=== PATIENT | female | born 1935 | race Caucasian/White ===

== ENCOUNTER 2016-08-23 02:51 | Day surgery (SDC) | payer MEDICARE, OTHER ==
[~2016-08-23] VITALS: Ht 165.1 cm; Wt 73.0 kg
[~2016-08-23 02:51] MED LIST: ACET-2321 PO; ALPR0.5T8 PO; ASPI-557 PO; CARV12.52 PO; DIPH25CA84 PO; ESTR0.5T4 PO; FERR324T PO; HYDR-4010 PO; HYDR-4246 PO; MAGN400O4 PO; MIRT15TA PO; MULT-1175 PO; NITR0.4T10 SL; OMEG1CAP29 PO; PRAM1TAB3 PO; PRED10TA PO; TELM40TA2 PO; VENL75CA60 PO
--- OUTSIDE RECORDS SUMMARY | 2016-08-23 02:56 | XMS REPORT | Continuity of Care Document ---
Author Author [facility] LIVE Organization [facility] Address Unknown Phone Unavailable Support Name Relationship Address Phone SUSIE RUDD MD Caregiver [address] [place] [phone] KAYY BANKS DPM Caregiver [address] [place] [address] [phone] PAIGE URBINA Next Of Kin [address] [place] [address] C Insurance Providers Payer Name Policy Number Subscriber Name Relationship Medicare [id number] Aisha Urbina 17 Self Medicare Supp Wps [id number] Paige Urbina 01 Spouse Advance Directives Directive Response Recorded Date/Time Ordered Resuscitation Status Full Code, unverified 03/20/14 12:36pm Problems Medical Problems Problem Onset Date Status Forehead laceration Unknown Active Contusion of head Unknown Active Forehead laceration Unknown Active Medications Medication Dose Route Sig Days/Qty Instructions Order Date Discontinued Date Status [Cenestin] DIRECTED 03/21/10 01/12/12 Discontinued [Effexor 75] 75 Mg PO TWICE A DAY 03/21/10 01/12/12 Discontinued Calcium Carbonate 2 Tab PO DAILY 03/21/10 11/24/11 Discontinued [Carvedilol] DIRECTED 03/21/10 11/24/11 Discontinued [Celebrex] 1 Tab PO DAILY 03/21/10 11/24/11 Discontinued Ferrous Sulfate 2 Tab PO DAILY 03/21/10 11/24/11 Discontinued [place]-3 Fatty Acids 2,400 Mg PO DAILY 03/21/10 Active Fluticasone Propionate [place] EA NOSTRIL NEEDED 03/21/10 Active Hydrocodone Bit/Acetaminophen 7.5 Mg PO NEEDED 03/21/10 11/25/11 Discontinued Pramipexole Di-Hcl 0.25 Mg PO BEDTIME 03/21/10 Active Multivitamins 1 Tab PO DAILY 03/21/10 09/21/12 Discontinued Pravastatin Sodium 20 Mg PO BEDTIME 03/21/10 11/24/11 Discontinued [Temazepam] DIRECTED 03/21/10 01/12/12 Discontinued [Viraim D 2000] 40,000 Mg PO DAILY 03/21/10 11/24/11 Discontinued Salmeterol Xinafoate/Fluticasone TWICE A DAY 11/24/11 08/13/13 Discontinued Mirtazapine 15 Mg PO DAILY 11/24/11 Active Cholecalciferol 1,000 Unit PO DAILY 2 Qty 11/24/11 01/12/12 Discontinued Fa/Mv,Ca,Fe,Min/Lycopene/Lut 1 Tab PO DAILY 01/12/12 Active Aspirin 81 Mg PO 3X WK 01/12/12 Active Estradiol 0.5 Mg PO DAILY 01/12/12 08/13/13 Discontinued Cyclobenzaprine Hcl 10 Mg PO NEEDED 01/12/12 08/13/13 Discontinued Telmisartan 20 Mg PO DAILY 01/12/12 Active Esomeprazole Mag Trihydrate 40 Mg PO NEEDED 01/12/12 Active Nitroglycerin 0.4 Mg SL NEEDED 01/12/12 Active Olopatadine Hcl 1 Drop OP NEEDED 01/12/12 Active Temazepam 30 Mg PO BEDTIME 01/12/12 Active Calcium Carbonate 300 Mg PO TWICE A DAY 01/12/12 08/13/13 Discontinued Acetaminophen 650 Mg THREE TIMES A DAY PRN 01/12/12 Active Ca Cmb No.1/Vit D3/B-6/Fa/B12 2 Each PO DAILY 01/12/12 Active Venlafaxine Hcl 75 Mg PO TWICE A DAY 08/13/13 Active Estrogens,Conj.,Synthetic A 0.45 Mg PO DAILY 08/13/13 Active Hydrocodone Bit/Acetaminophen 1 Each PO PRN PRN ORDERS 08/13/13 Active Social History Social History Problem Response Recorded Date/Time Smoking Status Never smoker 03/21/2014 6:38am Chewing Tobacco Status No 08/13/2013 8:36am Hx Substance Use No 02/23/2014 12:59pm Hx Alcohol Use Y OCCASIONAL 02/23/2014 12:59pm Has the pt used tobacco in the last 12 months No 03/21/2014 6:38am Query Response Start Date Stop Date Smoking Status Never smoker Hospital Discharge Instructions No hospital discharge instructions. Plan of Care No plan of care. Functional Status Query Response Date Recorded Physical Hygiene Self February 23, 2014 12:59pm Physical Hygiene Self February 23, 2014 12:59pm Allergies, Adverse Reactions, Alerts Allergen Type Severity Reaction Status Last Updated No Known Drug Allergies Allergy Unknown Active 02/23/14 Ibuprofen Adverse Reaction Mild UPSET STOMACH Active 03/20/14 Immunizations Name Given Type Hx Influenza Vaccination Y APR 2013 Historical Hx Pneumococcal Vaccination Y CURRENT Historical Hx Tetanus, Diptheria, Pertussis Y 2012 Historical Hx Influenza Vaccination Y APR 2013 Historical Hx Tetanus Diptheria Y KEEPS ME UPDATED Historical Hx Tetanus, Diptheria, Pertussis Y 2012 Historical Vital Signs Acute Vital Signs Vital Response Date/Time Temperature (Fahrenheit) 97.3 deg F (96.8 - 99.1) Temperature (Calculated Celsius) 36.87430 degrees C (36.0 - 37.3) Temperature Source Temporal Pulse Rate (adult) 58 bpm (60 - 100) Respiratory Rate 16 breaths/min (10 - 20) O2 Sat by Pulse Oximetry 97 % (90 - 100) Oxygen Delivery Method Room Air Blood Pressure 169/90 mm Hg Blood Pressure Source Automatic Cuff Height 5 ft 6.5 in Weight 173 lb Body Mass Index 27.0 kg/m^2 Results Test Source Date Result Interp. Ref. Range Comments Alanine Aminotransferase (ALT/SGPT) March 21, 2014 6:28am 33 U/L N 9- 52 COMMENT TO [facility] AT 0400 Albumin March 21, 2014 6:28am 4.2 G/DL N 3.5-5.0 COMMENT TO [facility] AT 0400 Albumin/Globulin Ratio March 21, 2014 6:28am 1.4 RATIO N 1.1-2.2 COMMENT TO [facility] AT 0400 Alkaline Phosphatase March 21, 2014 6:28am 100 U/L N 38-126 COMMENT TO [facility] AT 0400 Anion Gap March 21, 2014 6:28am 10 MEQ/L N 5-15 COMMENT TO [facility] AT 0400 Aspartate Amino Transf (AST/SGOT) March 21, 2014 6:28am 24 U/L N 14- 36 COMMENT TO [facility] AT 0400 BUN/Creatinine Ratio March 21, 2014 6:28am 16 RATIO N 6-26 COMMENT TO [facility] AT 0400 Basophils # (Auto) March 21, 2014 6:28am 0.1 T/MM3 N 0-0.2 COMMENT TO [facility] AT 0600 Basophils (%) (Auto) March 21, 2014 6:28am 0.7 % N 0-2 COMMENT TO [facility] AT 0600 Blood Urea Nitrogen March 21, 2014 6:28am 19.0 MG/DL H 7-17 COMMENT TO [facility] AT 0400 Calcium Level March 21, 2014 6:28am 9.7 MG/DL N 8.4-10.2 COMMENT TO [facility] AT 0400 Calculated Osmolality March 21, 2014 6:28am 267 MOSM/KG N 261-280 COMMENT TO [facility] AT 0400 Carbon Dioxide Level March 21, 2014 6:28am 27 MEQ/L N 22-30 COMMENT TO [facility] AT 0400 Chemistry Specimen Hemolysis March 21, 2014 6:28am < 15 0-25 0-25: No Hemolysis.26-70: Slight Hemolysis - can falsely elevate K and Urine Protein. 71-285: Moderate Hemolysis - can falsely elevate K, Troponin I, CA 19-9, PTH, CSF GLucose, and Urine Protein, and can falsely decrease Phenytoin. 286-999: Gross Hemolysis - can falsely elevate K, Troponin I, CA 19-9, PTH, CSF Glucose, and Urine Protine, and can falsely decrease Phenytoin. Recommend specimen recollection. Chloride Level March 21, 2014 6:28am 101 MEQ/L N 98-107 COMMENT TO [facility] AT 0400 Creatinine March 21, 2014 6:28am 1.2 MG/DL N 0.7-1.2 COMMENT TO [facility] AT 0400 Eosinophils # (Auto) March 21, 2014 6:28am 0.5 T/MM3 N 0-0.5 COMMENT TO [facility] AT 0600 Eosinophils (%) (Auto) March 21, 2014 6:28am 6.5 % H 0-4 COMMENT TO [facility] AT 0600 Globulin March 21, 2014 6:28am 2.9 G/DL N 2.4-3.6 COMMENT TO [facility] AT 0400 Glomerular Filtration Rate Calc March 21, 2014 6:28am 43 - COMMENT TO [facility] AT 0400 Glucose Level March 21, 2014 6:28am 89 MG/DL N 65-110 COMMENT TO [facility] AT 0400 Hematocrit March 21, 2014 6:28am 32.7 % L 36-46 COMMENT TO [facility] AT 0600 Hemoglobin March 21, 2014 6:28am 10.5 GM/DL L 12-16 COMMENT TO [facility] AT 0600 Icterus Index March 21, 2014 6:28am < 2 0-7 COMMENT TO [facility] AT 0400 Immature Granulocyte # (Auto) March 21, 2014 6:28am 0.01 T/MM3 N 0.00- 0.03 COMMENT TO [facility] AT 0600 Immature Granulocyte % (Auto) March 21, 2014 6:28am 0.1 % N 0.0-0.5 COMMENT TO [facility] AT 0600 Lab Scanned Report September 10, 2013 9:15pm LAB TEST FORM REQUEST [id number] - Lymphocytes # (Auto) March 21, 2014 6:28am 3.2 T/MM3 N 1-4.8 COMMENT TO [facility] AT 0600 Lymphocytes (%) (Auto) March 21, 2014 6:28am 43.6 % N 23-45 COMMENT TO [facility] AT 0600 MRSA Specimen Source September 18, 2012 2:42pm Nasal - Mean Corpuscular Hemoglobin March 21, 2014 6:28am 30.7 UUG N 26-34 COMMENT TO [facility] AT 0600 Mean Corpuscular Hemoglobin Concent March 21, 2014 6:28am 32.1 GM/DL N 31-37 COMMENT TO [facility] AT 0600 Mean Corpuscular Volume March 21, 2014 6:28am 95.6 UM3 N 80-100 COMMENT TO [facility] AT 0600 Mean Platelet Volume March 21, 2014 6:28am 9.4 UM3 N 9.4-12.4 COMMENT TO [facility] AT 0600 Methicillin-Resist S.aureus DNA PCR September 18, 2012 2:42pm Negative - Monocytes # (Auto) March 21, 2014 6:28am 0.8 T/MM3 N 0-0.8 COMMENT TO [facility] AT 0600 Monocytes (%) (Auto) March 21, 2014 6:28am 10.4 % H 0-9.0 COMMENT TO [facility] AT 0600 Neutrophils # (Auto) March 21, 2014 6:28am 2.8 T/MM3 N 1.8-7.7 COMMENT TO [facility] AT 0600 Neutrophils (%) (Auto) March 21, 2014 6:28am 38.7 % N 33-66 COMMENT TO [facility] AT 0600 Platelet Count March 21, 2014 6:28am 330 T/MM3 N 130-400 COMMENT TO [facility] AT 0600 Potassium Level March 21, 2014 6:28am 4.2 MEQ/L N 3.6-5 COMMENT TO [facility] AT 0400 Prothromb Time International Ratio October 22, 2012 9:10am 2.29 H 0.86-1.10 THERAPUTIC RANGE=2.00-3.00 FOR ANTI-THROMBOSIS THERAPUTIC RANGE=2.50-3.50 FOR IMPLANTED VALVE RDW Standard Deviation March 21, 2014 6:28am 48.2 FL N 36.9-50.2 COMMENT TO [facility] AT 0600 Red Blood Count March 21, 2014 6:28am 3.42 M/MM3 L 4.00-5.20 COMMENT TO [facility] AT 0600 Sodium Level March 21, 2014 6:28am 138 MEQ/L N 134-144 COMMENT TO [facility] AT 0400 Total Bilirubin March 21, 2014 6:28am 0.40 MG/DL N 0.20-1.30 COMMENT TO [facility] AT 0400 Total Protein March 21, 2014 6:28am 7.1 G/DL N 6.3-8.2 COMMENT TO [facility] AT 0400 Turbidity March 21, 2014 6:28am < 20 0-20 COMMENT TO [facility] AT 0400 Urinalysis Comment September 23, 2012 5:45am Microscopic not ind. - COMMENT DO C&S IF INDICATED;[facility]-PREOP IN FOR LABSHas specimen been collected/ obtained? Y Urine Bilirubin September 23, 2012 5:45am Negative - COMMENT DO C&S IF INDICATED;[facility]-PREOP IN FOR LABSHas specimen been collected/obtained? Y Urine Blood September 23, 2012 5:45am Negative - COMMENT DO C&S IF INDICATED;[facility]-PREOP IN FOR LABSHas specimen been collected/obtained? Y Urine Collection Type September 23, 2012 5:45am Voided - COMMENT DO C&S IF INDICATED;[facility]-PREOP IN FOR LABSHas specimen been collected/obtained? Y Urine Color September 23, 2012 5:45am Yellow - COMMENT DO C&S IF INDICATED;[facility]-PREOP IN FOR LABSHas specimen been collected/obtained? Y Urine Glucose (UA) September 23, 2012 5:45am Negative - COMMENT DO C&S IF INDICATED;[facility]-PREOP IN FOR LABSHas specimen been collected/obtained? Y Urine Ketones September 23, 2012 5:45am Negative - COMMENT DO C&S IF INDICATED;[facility]-PREOP IN FOR LABSHas specimen been collected/obtained? Y Urine Leukocyte Esterase September 23, 2012 5:45am Negative - COMMENT DO C&S IF INDICATED;[facility]-PREOP IN FOR LABSHas specimen been collected/obtained? Y Urine Nitrite September 23, 2012 5:45am Negative - COMMENT DO C&S IF INDICATED;[facility]-PREOP IN FOR LABSHas specimen been collected/obtained? Y Urine Protein September 23, 2012 5:45am Negative - COMMENT DO C&S IF INDICATED;[facility]-PREOP IN FOR LABSHas specimen been collected/obtained? Y Urine Specific [place] September 23, 2012 5:45am 1.015 - COMMENT DO C&S IF INDICATED;[facility]-PREOP IN FOR LABSHas specimen been collected/obtained? Y Urine Turbidity September 23, 2012 5:45am Clear - COMMENT DO C&S IF INDICATED;[facility]-PREOP IN FOR LABSHas specimen been collected/obtained? Y Urine Urobilinogen September 23, 2012 5:45am Normal EU/DL - COMMENT DO C& S IF INDICATED;[facility]-PREOP IN FOR LABSHas specimen been collected/obtained? Y Urine pH September 23, 2012 5:45am 6.0 - COMMENT DO C&S IF INDICATED;[facility] -PREOP IN FOR LABSHas specimen been collected/obtained? Y White Blood Count March 21, 2014 6:28am 7.3 T/MM3 N 4.5-11.0 COMMENT TO [facility] AT 0600 Gram Stain Hip, Intraoperative Site-Left September 24, 2012 7:41am Name: AISHA URBINA Unit #: [id number] : 1935 Sex: F Loc / Svc: [facility] DOS: 03/21/14 Signed Report #: [id number] DIAGNOSTIC IMAGING REPORT TYPE OF EXAM: FOOT RIGHT 2 VIEWS Dictated By: ADELA RUDD MD Indication: ITS.REASON: s/p hammertoe repair rt foot 2 and 3 toes Comparison: Right toe radiographs dated November 25, 2011 Findings: Postsurgical changes again noted from prior bunionectomy in the first digit. New arthrodesis hardware across the second and third toe proximal interphalangeal joints. Prior osteotomies. No acute fracture. Impression: New arthrodesis across the second and third toe PIP joints. . Procedures Procedure Status Date Provider(s) INTMD RPR FACE/MM 5.1-7.5 CM completed 02/23/14 SHIV KHAN MD Hammer toe repair completed 03/21/14 KAYY BANKS DPM Encounters Encounter Location Date/Time Departed Emergency Room [facility] 02/23/14 12:43pm
--- OUTSIDE RECORDS SUMMARY | 2016-08-23 02:56 | XMS REPORT | Continuity of Care Document ---
Author Author [facility] LIVE Organization [facility] Address Unknown Phone Unavailable Support Name Relationship Address Phone SHIV KHAN MD Caregiver [address] [place] [address] [place] [address] WIN KHAN MD Caregiver [address] [place] [address] [place] [address] SUSIE PALACIO MD Caregiver [address] [facility] [address] [place] [address] MIGUEL URBINA Next Of Kin [address] [place] [address] C Insurance Providers Payer Name Policy Number Subscriber Name Relationship Medicare [id number] Rika Urbina 17 Self Medicare Supp Wps [id number] Miguel rUbina 01 Spouse Problems Medical Problems Problem Onset Date Status [...] 2 Tab PO DAILY 03/21/10 11/24/11 Discontinued [place]-3 Fatty Acids 2,400 Mg PO DAILY 03/21/10 Active Fluticasone Propionate [place] EA NOSTRIL NEEDED 03/21/10 Active Hydrocodone Bit/Acetaminophen [...] Mg SL NEEDED 01/12/12 Active Olopatadine Hcl 5 Ml OP NEEDED 01/12/12 Active Temazepam 30 Mg [...] Response Recorded Date/Time Smoking Status Never smoker 02/23/2014 12:59pm Chewing Tobacco Status No 08/13/2013 8:36am Hx Substance Use No 02/23/2014 12:59pm Hx Alcohol Use Y OCCASIONAL 02/23/2014 12:59pm Has the pt used tobacco in the last 12 months No 09/24/2012 10:26am Query Response Start Date Stop Date Smoking Status Never smoker Hospital Discharge Instructions No hospital discharge instructions. Plan of Care No plan of care. Functional Status Query Response Date Recorded Physical Hygiene Self February 23, 2014 12:59pm Disabilities None February 23, 2014 12:59pm Devices Used Dentures Glasses February 23, 2014 12:59pm Dressing Self February 23, 2014 12:59pm Ambulation Self February 23, 2014 12:59pm Diet Self February 23, 2014 12:59pm Mental Status Alert Oriented February 23, 2014 12:59pm Disabilities None February 23, 2014 12:59pm Devices Used Dentures Glasses February 23, 2014 12:59pm Physical Hygiene Self February 23, 2014 12:59pm Dressing Self February 23, 2014 12:59pm Ambulation Self February 23, 2014 12:59pm Diet Self February 23, 2014 12:59pm Allergies, Adverse Reactions, Alerts Allergen Type Severity Reaction Status Last Updated No Known Drug Allergies Allergy Unknown Active 02/23/14 Immunizations Name Given Type Hx Influenza Vaccination Y APR 2013 Historical Hx Pneumococcal Vaccination Y CURRENT Historical Hx Tetanus, Diptheria, Pertussis Y 2012 Historical Hx Influenza Vaccination Y APR 2013 Historical Hx Tetanus Diptheria Y KEEPS ME UPDATED Historical Hx Tetanus, Diptheria, Pertussis Y 2012 Historical Vital Signs Acute Vital Signs Vital Response Date/Time Temperature (Fahrenheit) 96.5 deg F (96.8 - 99.1) Temperature (Calculated Celsius) 35.29765 degrees C (36.0 - 37.3) Pulse Rate (adult) 79 bpm (60 - 100) Respiratory Rate 16 breaths/min (10 - 20) O2 Sat by Pulse Oximetry 94 % (90 - 100) Blood Pressure 183/97 mm Hg Height 5 ft 7 in Weight 173 lb Body Mass Index 27.0 kg/m^2 Results Test Source Date Result Interp. Ref. Range Comments Alanine Aminotransferase (ALT/SGPT) September 23, 2012 11:15am 29 U/L N 9- 52 Albumin September 23, 2012 11:15am 4.8 G/DL N 3.5-5.0 Albumin/Globulin Ratio September 23, 2012 11:15am 1.5 RATIO N 1.1-2.2 Alkaline Phosphatase September 23, 2012 11:15am 92 U/L N 38-126 Anion Gap September 27, 2012 5:05am 9 MEQ/L N 5-15 Aspartate Amino Transf (AST/SGOT) September 23, 2012 11:15am 19 U/L N 14-36 BUN/Creatinine Ratio September 27, 2012 5:05am 16 RATIO N 6-26 Basophils # (Auto) September 23, 2012 11:15am 0.0 T/MM3 N 0-0.2 COMMENT [facility]-PT FOR PREOP LABS Basophils (%) (Auto) September 23, 2012 11:15am 0.5 % N 0-2 COMMENT [facility]- PT FOR PREOP LABS Blood Urea Nitrogen September 10, 2013 4:21pm 18.0 MG/DL H 7-17 CALL RESULTS TO XRAY Calcium Level September 27, 2012 5:05am 9.2 MG/DL N 8.4-10.2 Calculated Osmolality September 27, 2012 5:05am 259 MOSM/KG L 261-280 Carbon Dioxide Level September 27, 2012 5:05am 25 MEQ/L N 22-30 Chloride Level September 27, 2012 5:05am 99 MEQ/L N 98-107 Creatinine September 10, 2013 4:21pm 1.3 MG/DL H 0.7-1.2 CALL RESULTS TO XRAY Eosinophils # (Auto) September 23, 2012 11:15am 0.2 T/MM3 N 0-0.5 COMMENT [facility] FOR PREOP LABS Eosinophils (%) (Auto) September 23, 2012 11:15am 2.8 % N 0-4 COMMENT [facility]- PT FOR PREOP LABS Globulin September 23, 2012 11:15am 3.2 G/DL N 2.4-3.6 Glucose Level September 27, 2012 5:05am 113 MG/DL H 65-110 Hematocrit September 27, 2012 5:05am 27.1 % L 36-46 Hemoglobin September 27, 2012 5:05am 8.7 GM/DL L 12-16 Lymphocytes # (Auto) September 23, 2012 11:15am 2.3 T/MM3 N 1-4.8 COMMENT [facility] FOR PREOP LABS Lymphocytes (%) (Auto) September 23, 2012 11:15am 29.9 % N 23-45 COMMENT [facility] FOR PREOP LABS Mean Corpuscular Hemoglobin September 27, 2012 5:05am 30.4 UUG N 26-34 Mean Corpuscular Hemoglobin Concent September 27, 2012 5:05am 32.1 GM/DL N 31-37 Mean Corpuscular Volume September 27, 2012 5:05am 94.8 UM3 N 80-100 Mean Platelet Volume September 27, 2012 5:05am 9.3 UM3 L 9.4-12.4 Monocytes # (Auto) September 23, 2012 11:15am 0.6 T/MM3 N 0-0.8 COMMENT [facility] FOR PREOP LABS Monocytes (%) (Auto) September 23, 2012 11:15am 8.1 % N 0-9.0 COMMENT [facility]- PT FOR PREOP LABS Neutrophils # (Auto) September 23, 2012 11:15am 4.5 T/MM3 N 1.8-7.7 COMMENT [facility] FOR PREOP LABS Neutrophils (%) (Auto) September 23, 2012 11:15am 58.6 % N 33-66 COMMENT [facility] FOR PREOP LABS Platelet Count September 27, 2012 5:05am 282 T/MM3 N 130-400 Potassium Level September 27, 2012 5:05am 4.5 MEQ/L N 3.6-5 Prothromb Time International Ratio October 22, 2012 9:10am 2.29 H 0.86-1.10 THERAPUTIC RANGE=2.00-3.00 FOR ANTI-THROMBOSIS THERAPUTIC RANGE=2.50-3.50 FOR IMPLANTED VALVE RDW Standard Deviation September 27, 2012 5:05am 49.1 FL N 36.9-50.2 Red Blood Count September 27, 2012 5:05am 2.86 M/MM3 L 4.00-5.20 Sodium Level September 27, 2012 5:05am 133 MEQ/L L 134-144 Total Bilirubin September 23, 2012 11:15am 0.40 MG/DL N 0.20-1.30 Total Protein September 23, 2012 11:15am 8.0 G/DL N 6.3-8.2 Urine Bilirubin September 23, 2012 5:45am Negative [...] LABSHas specimen been collected/obtained? Y Urine Specific [place] September 23, 2012 5:45am 1.015 - COMMENT [...] specimen been collected/obtained? Y White Blood Count September 27, 2012 5:05am 9.2 T/MM3 N 4.5-11.0 Urinalysis Comment September 23, 2012 5:45am Microscopic not ind. - COMMENT DO C&S IF INDICATED;[facility]-PREOP IN FOR LABSHas specimen been collected/ obtained? Y Lab Scanned Report September 10, 2013 9:15pm LAB TEST FORM REQUEST [id number] - Methicillin-Resist S.aureus DNA PCR September 18, 2012 2:42pm Negative - Glomerular Filtration Rate Calc September 10, 2013 4:21pm 40 - CALL RESULTS TO XRAY Immature Granulocyte # (Auto) September 23, 2012 11:15am 0.01 T/MM3 N 0.00- 0.03 COMMENT [facility] FOR PREOP LABS Immature Granulocyte % (Auto) September 23, 2012 11:15am 0.1 % N 0.0-0.5 COMMENT [facility] FOR PREOP LABS MRSA Specimen Source September 18, 2012 2:42pm Nasal - Gram Stain Hip, Intraoperative Site-Left September 24, 2012 7:41am Name: RIKA URBINA Unit #: [id number] : 1935 Sex: F Loc / Svc: ED DOS: 02/23/14 Signed Report #: [id number] DIAGNOSTIC IMAGING REPORT TYPE OF EXAM: CT HEAD W/O CONTRAST Dictated By: TULIO HOLLY MD INDICATION: ITS.REASON: fall forehead laceration, hx of "bleed in brain" CT HEAD W/O CONTRAST: CT HEAD W/O CONTRAST Technique: Axial acquisitions were obtained through the brain without contrast. The ventricles and sulci are age-appropriate. The kramer-white matter interface is maintained. There is no midline shift or mass effect. The basilar cisterns remain patent. There is no evidence for acute intracranial hemorrhage. IMPRESSION: No acute intracranial abnormality. . Procedures No known history of procedures. Encounters Encounter Location Date/Time Departed Emergency Room [facility] 02/23/14 12:43pm Recent Diagnosis
--- OUTSIDE RECORDS SUMMARY | 2016-08-23 02:56 | XMS REPORT | Continuity of Care Document ---
Author Author [facility] Organization [facility] Address Unknown Phone Unavailable Support Name Relationship Address Phone SUSIE RUDD MD Caregiver [address] [place] [address] Unavailable JOSEPH CRUM MD Caregiver [address] [place] [address] Unavailable MARTHA MARIN MD Caregiver [address] [facility] [address] Unavailable MIGUEL URBINA Next Of Kin [address] [place] [address] C Insurance Providers Guarantor Aisha Urbina Address [address] [place] [address] C Email DENIED 16 Payer [employer] Medicare Supp Wps Policy Number [id number] Subscriber's Name Miguel Urbina Relationship 01 Spouse Effective Date 01 Payer Medicare Policy Number [id number] Subscriber's Name Aisha Urbina Relationship 18 Self Advance Directives Directive Response Recorded Date/Time Advanced Directives Type None 08/11/16 9:44am Chief Complaint and Reason for Visit Chief Complaint Lower Extremity Pain Reason for Visit Osteoarthritis of right hip Problems Active Problems Medical Problem Onset Date Status Anemia Unknown Acute CAD (coronary artery disease) ~2005 Chronic CKD (chronic kidney disease), stage III Unknown Chronic Carotid artery disease Unknown Chronic Carotid stenosis, left Unknown Resolved Depression Unknown Chronic Dislocation of internal left hip prosthesis Unknown Acute Failure of total hip arthroplasty Unknown Resolved GERD (gastroesophageal reflux disease) Unknown Chronic Hip dislocation, left Unknown Acute Hypertension Unknown Chronic Hypokalemia Unknown Acute Hypoxemia Unknown Acute Infection Unknown Resolved Laryngitis Unknown Acute Left hip pain Unknown Acute Lethargy Unknown Acute Overweight (BMI 25.0-29.9) Unknown Chronic Postoperative hypotension Unknown Acute Restless leg syndrome Unknown Chronic Right hip pain Unknown Acute SDH (subdural hematoma) ~2005 Resolved Surgical Problem Onset Date Status History of total hip arthroplasty Unknown Acute Past Problems Medical Problem Onset Date Contusion of head Unknown Forehead laceration Unknown Forehead laceration Unknown Osteoarthritis of right hip Unknown Medications Current Home Medications Medication Dose Units Route Directions Days Qty Instructions Start Date Acetaminophen (Tylenol) 325 Mg Tablet 650 Mg Oral Four Times Daily as needed for Pain 30 Days 12/25/15 Alprazolam 0.5 Mg Tablet 1.5 Mg Oral Bedtime 30 Days 90 Tablet Aspirin (Aspir 81) 81 Mg Tablet.dr 1 Tab Oral Daily 30 Days 30 Tablet 12/25/15 Carvedilol 12.5 Mg Tablet 12.5 Mg Oral Twice Daily With Meals 12/18 Diphenhydramine Hcl (Benadryl) 25 Mg Capsule 25 Mg Oral Every 6 Hours as needed for Itching 30 Capsule 12/18/15 Estradiol (Estrace) 0.5 Mg Tablet 1 Tab Oral Daily 30 Days 30 Tablet 12/25/15 Ferrous Gluconate 324 Mg Tablet 324 Mg Oral Twice Daily With Meals 60 Tablet 12/25/15 Hydrocodone/Acetaminophen (Lortab 7.5-325 Mg Tablet) 1 Each Tablet 1 Tab Oral Twice A Day for Pain 10 Tablet 08/11/16 Hydrocodone/Acetaminophen (Yale 5-325 Tablet) 5-325 Tablet 1 Tab Oral Every 6 Hours as needed for Pain 30 12/25/15 Magnesium Hydroxide (Milk Of Magnesia) 400 Mg/5 Ml Oral.susp 30 Ml Oral Daily as needed for Constipation 30 Days 12/18/15 Mirtazapine (Remeron) 15 Mg Tablet 7.5 Mg Oral Bedtime 11/24/11 Multivitamin (Multi-Vitamin Daily) 1 Each Tablet 1 Tab Oral Daily 09/08/15 Nitroglycerin (Nitroquick) 0.4 Mg Tab.subl 0.4 Mg Sublingual Every 5 Minutes X 3 as needed for Chest Pain 01/12/12 Abbot-3/Dha/Epa/Fish Oil (Fish Oil 1,400 Mg Softgel) 1 Each Capsule. 1,400 Mg Oral Daily 09/08/15 Pramipexole Di-Hcl (Mirapex) 1 Mg Tablet 1 Mg Oral 1500 09/08/15 Prednisone 10 Mg Tablet 0 Oral Taper Qd 18 Tablet 30 mg daily x3 days 20 mg daily x3 days 10 mg daily x2 days 08/11/16 Telmisartan (Micardis) 40 Mg Tablet 40 Mg Oral Daily 11/10/15 Venlafaxine Hcl (Effexor Xr) 75 Mg Cap.er.24h 75 Mg Oral Daily Past Home Medications Medication Directions Ordered Status Acetaminophen (Tylenol) 325 Mg Tablet, 650 Mg Oral Four Times Daily 12/18/15 Discontinued Acetaminophen 500 Mg Tablet, 1000 Mg Oral Bedtime as needed for Pain Discontinued Acetaminophen 500 Mg Tablet, 1000 Mg Oral Every 6 Hours as needed for Pain Discontinued Acetaminophen/Hydrocodone Bitart (Yale 7.5-325 Tablet) 1 Each Tablet, 0.5 Tab Oral Bedtime as needed for Pain 09/08/15 Discontinued Alprazolam 0.5 Mg Tablet, 1.5 Mg Oral Bedtime 12/19/15 Discontinued Alprazolam 0.5 Mg Tablet, 2 Mg Oral Bedtime 09/08/15 Discontinued Aspirin (Aspir 81) 81 Mg Tablet.dr, 81 Mg Oral Daily 11/10/15 Discontinued Aspirin 81 Mg Tablet, 81 Mg Oral Daily 01/12/12 Discontinued Calcium Carbonate (Tums X-Str) 300 Mg Tab.chew, 300 Mg Oral Twice A Day 01/11 Discontinued Calcium Carbonate (Calcium) 1 Tab Tablet, 2 Tab Oral Daily 03/21/10 Discontinued Carvedilol 6.25 Mg Tablet, 6.25 Mg Oral Twice A Day 09/08/15 Discontinued Carvedilol , As Directed 03/21/10 Discontinued Celebrex , 1 Tab Oral Daily 03/21/10 Discontinued Cenestin , As Directed 03/21/10 Discontinued Cholecalciferol (Vitamin D) 1,000 Unit Capsule, 1000 Unit Oral Daily Discontinued Cyclobenzaprine Hcl (Flexeril) 10 Mg Tablet, 10 Mg Oral As Needed 01/12/12 Discontinued Effexor 75 , 75 Mg Oral Twice A Day 03/21/10 Discontinued Enoxaparin Sodium (Lovenox) 40 Mg/0.4 Ml Inj, 40 Mg Sub-Q Every 24 Hours Discontinued Estradiol (Estrace) 0.5 Mg Tablet, 0.5 Mg Oral Daily 12/12/15 Discontinued Estradiol 0.5 Mg Tablet, 0.5 Mg Oral Daily 01/12/12 Discontinued Ferrous Sulfate 1 Tab Tablet, 2 Tab Oral Daily 03/21/10 Discontinued Hydrocodone Bit/Acetaminophen (Lortab 7.5-500 Tablet) 1 Tab Tablet, 7.5 Mg Oral As Needed 03/21/10 Discontinued Hydrocodone/Acetaminophen (Yale 5-325 Tablet) 5-325 Tablet, 1 Tab Oral Every 6 Hours as needed for Pain 12/12/15 Discontinued Ipratropium/Albuterol Sulfate (Iprat-Albut 0.5-3(2.5) Mg/3 Ml) 3 Ml Ampul.neb, 3 Ml Aerosol Tx. Four Times Daily 12/18/15 Discontinued Multivitamins (Multivitamin) 1 Tab Tablet, 1 Tab Oral Daily 03/21/10 Discontinued Pravastatin Sodium 20 Mg Tablet, 20 Mg Oral Bedtime 03/21/10 Discontinued Salmeterol Xinafoate/Fluticasone (Advair 250-50 Diskus) 1 Each Disk.w.dev, Twice A Day 11/24/11 Discontinued Temazepam , As Directed 03/21/10 Discontinued Viraim D 2000 , 66507 Mg Oral Daily 03/21/10 Discontinued Social History Social History Problem Response Recorded Date/Time Onset Date Status Chewing Tobacco Status No 08/13/2013 8:36am Not Applicable Not Applicable Hx Substance Use No 08/11/2016 9:57am Not Applicable Not Applicable Hx Alcohol Use Y OCCASIONAL 08/11/2016 9:57am Not Applicable Not Applicable Has the pt used tobacco in the last 12 months No 12/12/2015 1:28pm Not Applicable Not Applicable Tobacco Usage none 12/20/2015 1:45pm Not Applicable Not Applicable Query Response Start Date Stop Date Smoking Status Never smoker Hospital Discharge Instructions No hospital discharge instructions. Plan of Care Discharge Date 08/11/16 12:53pm Disposition 01 DISCHARGED HOME, SELF-CARE Condition at Discharge Improved Instructions/Education Provided Osteoarthritis (ED) Prescriptions See Medication Section Referrals SUSIE RUDD MD Address: [address] [place] [phone] Additional Instructions/Education prednisone 10mg, 3 tabs daily for 3 days, 2 tabs daily for 3 days, 1 tab daily for 3 days. Yale 7.5 bid x 5 days , See your Primary Care Provider early next week. Functional Status No functional status results. Allergies, Adverse Reactions, Alerts Allergen Type Severity Reaction Status Last Updated Ibuprofen Adverse Reaction Mild UPSET STOMACH Active 08/11/16 Immunizations Query Response on File Recorded Date/Time Hx Influenza Vaccination Y Mar 2015 12/19/15 12:06pm Hx Pneumococcal Vaccination Y 201312/19/15 12:06pm Hx Tetanus, Diptheria, Pertussis Y 201202/23/14 12:59pm Hx Influenza Vaccination Y Mar 2015 12/19/15 12:06pm Hx Tetanus Diptheria Y KEEPS ME UPDATED 09/08/15 11:43am Hx Tetanus, Diptheria, Pertussis Y 201202/23/14 12:59pm Hx Tetanus Toxoid Vaccination Yes 09/08/15 11:43am DTaP Vaccine History 200908/11/16 9:57am Influenza Vaccine Hx 201508/11/16 9:57am Tdap Vaccine Hx NO OPEN AREAS 08/11/16 9:57am Vital Signs Acute Vital Signs Vital Response Date/Time Temperature (Fahrenheit) 97.9 deg F (96.8 - 99.1) 08/11/2016 9:44am Temperature (Calculated Celsius) 36.99169 degrees C (36.0 - 37.3) 08/11/2016 9:44am Pulse Rate (adult) 60 bpm (60 - 100) 08/11/2016 12:48pm Respiratory Rate 12 breaths/min (10 - 20) 08/11/2016 12:48pm O2 Sat by Pulse Oximetry 96 % (90 - 100) 08/11/2016 12:48pm Blood Pressure 156/74 mm Hg 08/11/2016 12:48pm Height (Feet) 5 feet 08/11/2016 9:44am Height (Inches) 5.00 inches 08/11/2016 9:44am Weight (Kilograms) 76.900 kg 08/11/2016 9:44am Body Mass Index (BMI) 28.0 08/11/2016 9:44am Results Laboratory Results Test Name Result Units Flags Reference Collection Date/Time Result Date/ Time Comments White Blood Count 4.3 T/MM3 L 4.5-11.0 08/11/2016 10:38am 08/11/2016 11: 11am Red Blood Count 3.49 M/MM3 L 4.00-5.20 08/11/2016 10:38am 08/11/2016 11: 11am Hemoglobin 10.7 GM/DL L 12-16 08/11/2016 10:38am 08/11/2016 11:11am Hematocrit 33.9 % L 36-46 08/11/2016 10:38am 08/11/2016 11:11am Mean Corpuscular Volume 97.1 UM3 80-100 08/11/2016 10:08/11/2016 11:11am Mean Corpuscular Hemoglobin 30.7 UUG 26-34 08/11/2016 10:2016 11:11am Mean Corpuscular Hemoglobin Concent 31.6 GM/DL 31-37 08/11/2016 10:08/11/2016 11:11am RDW Standard Deviation 48.9 FL 36.9-50.2 08/11/2016 10:08/11/2016 11:11am Platelet Count 304 T/MM3 130-400 08/11/2016 10:08/11/2016 11:11am Mean Platelet Volume 9.4 UM3 9.4-12.4 08/11/2016 10:08/11/2016 11: 11am Neutrophils (%) (Auto) 50.4 % 33-66 08/11/2016 10:08/11/2016 11: 11am Lymphocytes (%) (Auto) 28.0 % 23-45 08/11/2016 10:08/11/2016 11: 11am Monocytes (%) (Auto) 12.7 % H 0-9.0 08/11/2016 10:08/11/2016 11: 11am Eosinophils (%) (Auto) 8.2 % H 0-4 08/11/2016 10:08/11/2016 11: 11am Basophils (%) (Auto) 0.7 % 0-2 08/11/2016 10:08/11/2016 11:11am Immature Granulocyte % (Auto) 0.0 % 0.0-0.5 08/11/2016 10:2016 11:11am Absolute Neutrophils (auto) 2.1 T/MM3 1.8-7.7 08/11/2016 10:2016 11:11am Absolute Lymphocytes (auto) 1.2 T/MM3 1-4.8 08/11/2016 10:2016 11:11am Absolute Monocytes (auto) 0.5 T/MM3 0-0.8 08/11/2016 10:2016 11:11am Absolute Eosinophils (auto) 0.4 T/MM3 0-0.5 08/11/2016 10:38am 2016 11:11am Absolute Basophils (auto) 0.0 T/MM3 0-0.2 08/11/2016 10:38am 2016 11:11am Absolute Immature Granulocyte (auto 0.00 T/MM3 0.00-0.03 08/11/2016 10: 38am 08/11/2016 11:11am Icterus Index < 2 0-7 08/11/2016 10:38am 08/11/2016 11:22am Chemistry Specimen Hemolysis < 15 0-25 08/11/2016 10:38am 08/11/2016 11:22am 0-25: Specimen Exhibited No Hemolysis. Turbidity < 20 0-20 08/11/2016 10:38am 08/11/2016 11:22am Sodium Level 138 MEQ/L 134-144 08/11/2016 10:38am 08/11/2016 11:22am Potassium Level 4.9 MEQ/L 3.6-5 08/11/2016 10:38am 08/11/2016 11:22am Chloride Level 100 MEQ/L 98-107 08/11/2016 10:38am 08/11/2016 11:22am Carbon Dioxide Level 27 MEQ/L 22-30 08/11/2016 10:38am 08/11/2016 11: 22am Anion Gap 11 MEQ/L 5-15 08/11/2016 10:38am 08/11/2016 11:22am Blood Urea Nitrogen 26.0 MG/DL H 7-17 08/11/2016 10:38am 08/11/2016 11: 22am Creatinine 1.3 MG/DL H 0.7-1.2 08/11/2016 10:3808/11/2016 11:22am BUN/Creatinine Ratio 20 RATIO 6-26 08/11/2016 10:38am 08/11/2016 11: 22am Glomerular Filtration Rate Calc 39 08/11/2016 10:3808/11/2016 11 :22am Glucose Level 98 MG/DL 65-110 08/11/2016 10:3808/11/2016 11:22am Calculated Osmolality 271 MOSM/KG 261-280 08/11/2016 10:38am 2016 11:22am Calcium Level 9.5 MG/DL 8.4-10.2 08/11/2016 10:38am 08/11/2016 11:22am Total Bilirubin 0.50 MG/DL 0.20-1.30 08/11/2016 10:38am 08/11/2016 11: 22am Alkaline Phosphatase 85 U/L 38-126 08/11/2016 10:38am 08/11/2016 11: 22am Total Protein 6.9 G/DL 6.3-8.2 08/11/2016 10:38am 08/11/2016 11:22am Albumin 4.1 G/DL 3.5-5.0 08/11/2016 10:38am 08/11/2016 11:22am Globulin 2.8 G/DL 2.4-3.6 08/11/2016 10:38am 08/11/2016 11:22am Albumin/Globulin Ratio 1.5 RATIO 1.1-2.2 08/11/2016 10:38am 08/11/2016 11:23am Aspartate Amino Transf (AST/SGOT) 20 U/L 14-36 08/11/2016 10:38am 08/11 11:23am Alanine Aminotransferase (ALT/SGPT) 26 U/L 9-52 08/11/2016 10:38am 02/2017 11:23am Name: AISHA URBINA Unit #: [id number] : 1935 Sex: F Admit Date: Loc / Svc: ED Discharge Date: DIAGNOSTIC IMAGING REPORT Report #: [id number] [facility] [place] Indication: ITS.REASON: pain PROCEDURE: PELVIS W/2 VIEW RT HIP: Encounter: Initial Comparison: December 15, 2015 Findings: Left hip replacement appears stable and intact. No acute fracture or dislocation seen. Moderate right hip joint space narrowing is unchanged. Degenerative change in the visualized lower lumbar spine. Bony demineralization. Impression: No acute fracture. . Procedures No known history of procedures. Encounters Encounter Location Arrival/Admit Date Discharge/Depart Date Attending Provider Departed Emergency Room [facility] 08/11/16 9:41am 08/11/16 12: 53pm JOSEPH CRUM MD Recent Diagnosis
--- NOTE | 2016-08-23 03:11 | ERPDOC ---
Departure Disposition Decision Date: Aug 23, 2016 Disposition Decision Time: 04:38 Disposition: 02 TO [facility] Impression Impression Impression: Primary Impression: Chest pain, rule out acute myocardial infarction Severity: Moderate Condition: Stable Seen By: Physician only Referrals: SUSIE PALACIO MD (Family) Problems/Meds/Labs Reviewed?: Yes Medications reviewed and manag: Yes Follow up care ordered?: Yes Mental Status: Alert, Oriented HPI - Chest Pain General Stated Complaint: CP Time Seen by Provider: 03:01 Source: patient, EMS, EMS notes reviewed Exam Limitations: no limitations HPI - Chest Pain Initial Comments Patient is an 81-year-old female presents emergency room for evaluation of chest pain. Patient prior CA with stenting in 2005, hasn't really seen a creative engagement director in over a year, due to her creative engagement director dying. Patient does have nitroglycerin at home and uses intermittently last time patient used nitroglycerin was one month ago 2 nitroglycerin completely alleviated the chest pain. Patient did not follow-up with creative engagement director. Tonight patient awoke from sleep with anterior substernal chest pain with radiation to jaw and neck. Patient felt weak and dizzy during the episode. Pain quickly ramped up to 10/10, patient did take 3 nitroglycerin at home which alleviated the pain to an 8. Patient called EMS on EMS arrival patient's pain had almost essentially resolved. EMS loaded patient onboard medic unit patient' s pain had resolved at that time was chest pain-free. EKG nondiagnostic patient was brought to the ER for evaluation currently chest pain-free. 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 Farris 2012 Past Medical History Metabolic: hypercholesterolemia, hypertension ENMT: allergies Cardiac: CAD, CA GI: GERD Neurological: seizures Musculoskeletal: neck pain, osteoarthritis Psychological: depression Surgical History General: colonoscopy, neck, tonsils Cardiac: cardiac cath, cardiac stent, carotid endarterectomy Reproductive/: hysterectomy, tubal ligation Joint: carpal tunnel, foot, hip, shoulder Family History Family PMH: FOUND: other Vaccines Hx Influenza Vaccination: Yes (Mar 2015) Hx Pneumococcal Vaccination: Yes (2013) Hx Tetanus Diptheria: Yes ( KEEPS ME UPDATED) Hx Tetanus, Diptheria, Pertuss: Yes (2012) Social History Smoking Status: Never smoker Does patient use chewing tobac: No Substance Use Type: does not use Alcohol Intake: none Sexuality: male partner Review of Systems Constitutional Constitutional: dizziness, weakness, DENIES: appetite decrease, chills, fever Eyes Vision: DENIES: blurring, double vision, loss of visual lilly ENMT Sinuses: DENIES: congestion, rhinorrhea Mouth/Throat: DENIES: scratchy throat, sore throat Cardiovascular Cardiac: chest pain, DENIES: dyspnea on exertion Pulmonary Respiratory: dyspnea, DENIES: cough, sputum, tachypnea GI Upper Abdomen: DENIES: nausea, pain, vomiting Lower Abdomen: DENIES: constipation, diarrhea, pain General: DENIES: frequency, urgency Musculoskeletal General: DENIES: cramps, pain, weakness Integumentary Skin: DENIES: color change, itching, rash Endocrine Endocrine: DENIES: heat/cold intolerance Hematologic/Lymphatic Hematologic/Lymphatic: DENIES: anemia Physical Exam General General Nourishment: well nourished, well developed General Body Habitus: well groomed Vitals and Pain First Documented Vital Signs Date Time Temp Pulse Resp B/P Pulse Ox O2 Delivery O2 Flow Rate FiO2 08/23/16 02:51 98.5 62 21 164/79 98 Room Air Weight: Kilograms: Height (feet): 5 Height (inches): 5.00 Triage Pain Scale: RN VS reviewed by Provider: Yes Eyes (brief) Eyes Brief: found: EOMI ENMT (brief) ENMT Brief: FOUND: mucosa moist, normal dentition, NOT FOUND: nasal erythema, pharnyx erythema, tonsillar deviation Neck (brief) Neck: NOT FOUND: adenopathy, spasm, tenderness Respiratory (brief) Respiratory: FOUND: clear all lilly, equal bilaterally, NOT FOUND: rales, wheezes Cardiovascular (brief) Cardiac: FOUND: regular rate, regular rhythm Capillary Refill: <2 sec Abdomen (brief) Abdominal Brief: FOUND: bowel normo active x4, soft, NOT FOUND: distended, tender (patient is nontender to palpation of the epigastrium) Lymphatic (brief) Lymphatic Brief: NOT FOUND: adenopathy Musculoskeletal (brief) Musculoskeletal Brief: NOT FOUND: spasm, tenderness Integumentary (brief) Integumentary Brief: FOUND: dry, pink, warm, NOT FOUND: rash Neurologic (brief) Neurological Brief: FOUND: CN w/o gross def to obs, motor-no gross deficits, sensory-no gross deficits Psychiatric (brief) Psychiatric Brief: FOUND: alert, oriented Differential Diagnoses Considering: Acute CA, Anxiety/Panic, Angina, Aortic Dissection, Biliary Colic , Bradycardia, CHF, Costochondritis, Esophageal Spasm, GERD, Hypertensive Emergency, Pleurisy, Pneumothorax, Pneumonia, Pulmonary Edema, Muscle Spasm Progress Results/Orders Orders Procedure Category Date Status Time Cbc W/Auto LAB 08/23/16 Complete Diff-Reflex Manual 03:01 Cmp - Comprehensive LAB 08/23/16 Complete Metabolic 03:01 Probnp LAB 08/23/16 Complete 03:01 Troponin I W LAB 08/23/16 Complete Hemolysis Index 03:01 EKG EKG 08/23/16 Taken 03:01 Chest 1 View RAD 08/23/16 Taken 03:01 Iv Lock (Ed Only) EDM 08/23/16 Transmitted 03:01 Aspirin (Asa) PHA 08/23/16 Complete 03:15 Nitroglycerin PHA 08/23/16 In Process (Nitrostat) 03:15 Place In Facility: ED ADM 08/23/16 Transmitted 04:36 Measure Vital Signs ALICE 08/23/16 In Process 04:36 Up In Room With Assist ALICE 08/23/16 In Process 04:36 Iv Lock (Nursing) ALICE 08/23/16 In Process 04:36 Prn Orders (Adult) PHA 08/23/16 In Process (May Use Prn Orders) 04:45 Troponin I W LAB 08/23/16 Logged Hemolysis Index 09:30 Troponin I W LAB 08/23/16 Logged Hemolysis Index 15:30 Troponin I W LAB 3/21/17 Logged Hemolysis Index 21:30 Nitroglycerin PHA 08/23/16 In Process (Nitrostat) 04:45 Telemetry ALICE 08/23/16 In Process 04:36 Lab Results Laboratory Tests Test 08/23/16 03:21 White Blood Count 7.3T/MM3 Red Blood Count 3.41M/MM3 Hemoglobin 10.7GM/DL Hematocrit 32.8% Mean Corpuscular Volume 96.2UM3 Mean Corpuscular Hemoglobin 31.4UUG Mean Corpuscular Hemoglobin Concent 32.6GM/DL RDW Standard Deviation 49.8FL Platelet Count 292T/MM3 Mean Platelet Volume 9.1UM3 Immature Granulocyte % (Auto) 0.4% Neutrophils (%) (Auto) 67.0% Lymphocytes (%) (Auto) 18.3% Monocytes (%) (Auto) 11.2% Eosinophils (%) (Auto) 3.0% Basophils (%) (Auto) 0.1% Absolute Immature Granulocyte (auto 0.03T/MM3 Absolute Neutrophils (auto) 4.9T/MM3 Absolute Lymphocytes (auto) 1.3T/MM3 Absolute Monocytes (auto) 0.8T/MM3 Absolute Eosinophils (auto) 0.2T/MM3 Absolute Basophils (auto) 0.0T/MM3 Turbidity < 20 Sodium Level 140MEQ/L Potassium Level 4.8MEQ/L Chloride Level 105MEQ/L Carbon Dioxide Level 24MEQ/L Anion Gap 11MEQ/L Blood Urea Nitrogen 33.0MG/DL Creatinine 1.3MG/DL Glomerular Filtration Rate Calc 39 BUN/Creatinine Ratio 25RATIO Glucose Level 107MG/DL Calculated Osmolality 276MOSM/KG Calcium Level 9.7MG/DL Total Bilirubin 0.40MG/DL Icterus Index < 2 Aspartate Amino Transf (AST/SGOT) 19U/L Alanine Aminotransferase (ALT/SGPT) 31U/L Alkaline Phosphatase 97U/L Troponin I < 0.012ng/ml TC-Cpn-A-Type Natriuretic Peptide 298PG/ML Total Protein 6.8G/DL Albumin 4.0G/DL Globulin 2.8G/DL Albumin/Globulin Ratio 1.4RATIO Chemistry Specimen Hemolysis < 15 Medications Current ED Medications Aspirin (ASA) 324 mg O ONCE PO Last administered on 08/23/16t 03:28; Start at 03:15; Stop 08/23/16 at 03:16; Status DC Nitroglycerin (Nitrostat) 0.4 mg Q5MIN PRN SL CHEST PAIN; Start 08/23/16 at 03: 15 Progress Progress Patient's stated chest pain-free while in the emergency department, 1st set of laboratories are noncontributory as well as EKG and chest x-ray. Discuss case with Mehreen control cabinet assembler for Dr. Garcia's group will admit observation status rule out chest pain EKG EKG : Rate: <60 Rhythm: sinus [place]: normal QRS: normal Intervals: normal ST/T: non-specific changes Interpreted by: signing physician Xray Xray : Xray: CXR Portable Interpretation: Normal, Interpreted by Me (stable chest no acute current pulmonary findings) LUZ JONES MD Aug 23, 2016 03:11
[2016-08-23] MEDS ORDERED: ASPIRIN 81 MG CHEWABLE TABLET PO ONE (03:15)
[2016-08-23] MEDS ORDERED: NITROGLYCERIN 0.4 MG SUBLINGUAL TABLET SL PRN ×3 (03:15→13:45)
--- OUTSIDE RECORDS SUMMARY | 2016-08-23 03:22 | XMS REPORT | Continuity of Care Document ---
Author Author [facility] Organization [facility] Address Unknown Phone Unavailable Support Name Relationship Address Phone SUSIE RUDD MD Caregiver [address] [place] [phone] KAYY BANKS DPM Caregiver [address] [place] [address] [phone] PAIGE URBINA Next Of Kin [address] [place] [address] C Insurance Providers Payer Name Policy Number Subscriber Name Relationship Medicare [id number] Aisha Urbina 17 Self Medicare Supp Wps [id number] Paige Urbina 01 Spouse Advance Directives Directive [...] 2 Tab PO DAILY 03/21/10 11/24/11 Discontinued [place]-3 Fatty Acids 2,400 Mg PO DAILY 03/21/10 Active Fluticasone Propionate [place] EA NOSTRIL NEEDED 03/21/10 Active Hydrocodone Bit/Acetaminophen [...] F (96.8 - 99.1) Temperature (Calculated Celsius) 36.28733 degrees C (36.0 - 37.3) Temperature Source [...] 33 U/L N 9- 52 COMMENT TO [facility] AT 0400 Albumin March 21, 2014 6:28am 4.2 G/DL N 3.5-5.0 COMMENT TO [facility] AT 0400 Albumin/Globulin Ratio March 21, 2014 6:28am 1.4 RATIO N 1.1-2.2 COMMENT TO [facility] AT 0400 Alkaline Phosphatase March 21, 2014 6:28am 100 U/L N 38-126 COMMENT TO [facility] AT 0400 Anion Gap March 21, 2014 6:28am 10 MEQ/L N 5-15 COMMENT TO [facility] AT 0400 Aspartate Amino Transf (AST/SGOT) March 21, 2014 6:28am 24 U/L N 14- 36 COMMENT TO [facility] AT 0400 BUN/Creatinine Ratio March 21, 2014 6:28am 16 RATIO N 6-26 COMMENT TO [facility] AT 0400 Basophils # (Auto) March 21, 2014 6:28am 0.1 T/MM3 N 0-0.2 COMMENT TO [facility] AT 0600 Basophils (%) (Auto) March 21, 2014 6:28am 0.7 % N 0-2 COMMENT TO [facility] AT 0600 Blood Urea Nitrogen March 21, 2014 6:28am 19.0 MG/DL H 7-17 COMMENT TO [facility] AT 0400 Calcium Level March 21, 2014 6:28am 9.7 MG/DL N 8.4-10.2 COMMENT TO [facility] AT 0400 Calculated Osmolality March 21, 2014 6:28am 267 MOSM/KG N 261-280 COMMENT TO [facility] AT 0400 Carbon Dioxide Level March 21, 2014 6:28am 27 MEQ/L N 22-30 COMMENT TO [facility] AT 0400 Chemistry Specimen Hemolysis March 21, [...] 6:28am 101 MEQ/L N 98-107 COMMENT TO [facility] AT 0400 Creatinine March 21, 2014 6:28am 1.2 MG/DL N 0.7-1.2 COMMENT TO [facility] AT 0400 Eosinophils # (Auto) March 21, 2014 6:28am 0.5 T/MM3 N 0-0.5 COMMENT TO [facility] AT 0600 Eosinophils (%) (Auto) March 21, 2014 6:28am 6.5 % H 0-4 COMMENT TO [facility] AT 0600 Globulin March 21, 2014 6:28am 2.9 G/DL N 2.4-3.6 COMMENT TO [facility] AT 0400 Glomerular Filtration Rate Calc March 21, 2014 6:28am 43 - COMMENT TO [facility] AT 0400 Glucose Level March 21, 2014 6:28am 89 MG/DL N 65-110 COMMENT TO [facility] AT 0400 Hematocrit March 21, 2014 6:28am 32.7 % L 36-46 COMMENT TO [facility] AT 0600 Hemoglobin March 21, 2014 6:28am 10.5 GM/DL L 12-16 COMMENT TO [facility] AT 0600 Icterus Index March 21, 2014 6:28am < 2 0-7 COMMENT TO [facility] AT 0400 Immature Granulocyte # (Auto) March 21, 2014 6:28am 0.01 T/MM3 N 0.00- 0.03 COMMENT TO [facility] AT 0600 Immature Granulocyte % (Auto) March 21, 2014 6:28am 0.1 % N 0.0-0.5 COMMENT TO [facility] AT 0600 Lab Scanned Report September 10, 2013 9:15pm LAB TEST FORM REQUEST [id number] - Lymphocytes # (Auto) March 21, 2014 [...] 6:28am 48.2 FL N 36.9-50.2 COMMENT TO [facility] AT 0600 Red Blood Count March 21, 2014 6:28am 3.42 M/MM3 L 4.00-5.20 COMMENT TO [facility] AT 0600 Sodium Level March 21, 2014 6:28am 138 MEQ/L N 134-144 COMMENT TO [facility] AT 0400 Total Bilirubin March 21, 2014 6:28am 0.40 MG/DL N 0.20-1.30 COMMENT TO [facility] AT 0400 Total Protein March 21, 2014 6:28am 7.1 G/DL N 6.3-8.2 COMMENT TO [facility] AT 0400 Turbidity March 21, 2014 6:28am < 20 0-20 COMMENT TO [facility] AT 0400 Urinalysis Comment September 23, 2012 [...] LABSHas specimen been collected/obtained? Y Urine Specific [place] September 23, 2012 5:45am 1.015 - COMMENT [...] 6:28am 7.3 T/MM3 N 4.5-11.0 COMMENT TO [facility] AT 0600 Gram Stain Hip, Intraoperative Site-Left September 24, 2012 7:41am Name: AISHA URBINA Unit #: [id number] : 1935 Sex: F Loc / Svc: [facility] DOS: 03/21/14 Signed Report #: [id number] DIAGNOSTIC IMAGING REPORT TYPE OF EXAM: FOOT [...] Encounters Encounter Location Date/Time Departed Emergency Room [facility] 02/23/14 12:43pm
--- OUTSIDE RECORDS SUMMARY | 2016-08-23 03:22 | XMS REPORT | Continuity of Care Document ---
Author Author [facility] Organization [facility] Address Unknown Phone Unavailable Support Name Relationship Address Phone SHIV KHAN MD Caregiver [address] [place] [address] [place] [address] WIN KHAN MD Caregiver [address] [place] [address] [place] [address] SUSIE PALACIO MD Caregiver [address] [facility] [address] [place] [address] MIGUEL URBINA Next Of Kin [address] [place] [address] C Insurance Providers Payer Name Policy Number Subscriber Name Relationship Medicare [id number] Rika Urbina 17 Self Medicare Supp Wps [id number] Miguel Urbina 01 Spouse Problems Medical Problems Problem Onset [...] 2 Tab PO DAILY 03/21/10 11/24/11 Discontinued [place]-3 Fatty Acids 2,400 Mg PO DAILY 03/21/10 Active Fluticasone Propionate [place] EA NOSTRIL NEEDED 03/21/10 Active Hydrocodone Bit/Acetaminophen [...] F (96.8 - 99.1) Temperature (Calculated Celsius) 35.94768 degrees C (36.0 - 37.3) Pulse Rate [...] LABSHas specimen been collected/obtained? Y Urine Specific [place] September 23, 2012 5:45am 1.015 - COMMENT [...] 10, 2013 9:15pm LAB TEST FORM REQUEST [id number] - Methicillin-Resist S.aureus DNA PCR September 18, [...] 2012 7:41am Name: RIKA URBINA Unit #: [id number] : 1935 Sex: F Loc / Svc: ED DOS: 02/23/14 Signed Report #: [id number] DIAGNOSTIC IMAGING REPORT TYPE OF EXAM: CT [...] Encounters Encounter Location Date/Time Departed Emergency Room [facility] 02/23/14 12:43pm Recent Diagnosis
--- NOTE | 2016-08-23 03:25 | NUR ---
IMAGING IN ROOM FOR PORTABLE CXR AT THIS TIME.
[2016-08-23 03:50] LABS: BASOPHILS % (AUTO) 0.1 % (0-2); EOSINOPHILS # (AUTO) 0.2 T/MM3 (0-0.5); HCT - HEMATOCRIT 32.8 % (36-46); HGB - HEMOGLOBIN 10.7 GM/DL (12-16); IMMATURE GRANULOCYTE # (AUTO) 0.03 T/MM3 (0.00-0.03); IMMATURE GRANULOCYTE % (AUTO) 0.4 % (0.0-0.5); LYMPHOCYTES # (AUTO) 1.3 T/MM3 (1-4.8); LYMPHOCYTES % (AUTO) 18.3 % (23-45); MEAN CORPUSCULAR HGB 31.4 UUG (26-34); MEAN CORPUSCULAR HGB CONC(MCHC 32.6 GM/DL (31-37); MEAN CORPUSCULAR VOLUME 96.2 UM3 (80-100); MEAN PLATELET VOLUME 9.1 UM3 (9.4-12.4); MONOCYTES # (AUTO) 0.8 T/MM3 (0-0.8); MONOCYTES % (AUTO) 11.2 % (0-9.0); NEUTROPHILS #(AUTO)-ABSOLUTE 4.9 T/MM3 (1.8-7.7); RED BLOOD COUNT 3.41 M/MM3 (4.00-5.20); WBC - WHITE BLOOD COUNT 7.3 T/MM3 (4.5-11.0)
[2016-08-23 03:56] LABS: ALBUMIN/GLOBULIN RATIO 1.4 RATIO (1.1-2.2); ALKALINE PHOSPHATASE 97 U/L (38-126); ALT (SGPT) 31 U/L (9-52); ANION GAP 11 MEQ/L (5-15); AST (SGOT) 19 U/L (14-36); BUN/CREATININE RATIO 25 RATIO (6-26); CALCIUM 9.7 MG/DL (8.4-10.2); CHLORIDE 105 MEQ/L (98-107); CO2 - CARBON DIOXIDE 24 MEQ/L (22-30); CREATININE 1.3 MG/DL (0.7-1.2); GLOMERULAR FILTRATION RATE 39; GLUCOSE 107 MG/DL (65-110); POTASSIUM 4.8 MEQ/L (3.6-5); SODIUM 140 MEQ/L (134-144); TOTAL PROTEIN 6.8 G/DL (6.3-8.2)
--- NOTE | 2016-08-23 04:00 | NUR ---
COMFORT WARM BLANKET GIVEN FOR COMFORT AT THIS TIME.
[2016-08-23 04:04] LABS: PROBNP 298 PG/ML (0-175)
--- NOTE | 2016-08-23 04:40 | NUR ---
BR PT AMBULATES TO BR AT THIS TIME WITH A STEADY GAIT.
[2016-08-23] MEDS ORDERED: PRN ORDERS MC (04:45)
--- OUTSIDE RECORDS SUMMARY | 2016-08-23 04:48 | XMS REPORT | Continuity of Care Document ---
Author Author [facility] Organization [facility] Address Unknown Phone Unavailable Support Name Relationship Address Phone SHIV KHAN MD Caregiver [address] [place] [address] [place] [address] WIN KHAN MD Caregiver [address] [place] [address] [place] [address] SUSIE PALACIO MD Caregiver [address] [facility] [address] [place] [address] MIGUEL URBINA Next Of Kin [address] [place] [address] C Insurance Providers Payer Name Policy Number Subscriber Name Relationship Medicare [id number] Rika Urbian 17 Self Medicare Supp Wps [id number] Miguel Urbina 01 Spouse Problems Medical Problems [...] 2 Tab PO DAILY 03/21/10 11/24/11 Discontinued [place]-3 Fatty Acids 2,400 Mg PO DAILY 03/21/10 Active Fluticasone Propionate [place] EA NOSTRIL NEEDED 03/21/10 Active Hydrocodone Bit/Acetaminophen [...] F (96.8 - 99.1) Temperature (Calculated Celsius) 35.26378 degrees C (36.0 - 37.3) Pulse Rate [...] LABSHas specimen been collected/obtained? Y Urine Specific [place] September 23, 2012 5:45am 1.015 - COMMENT [...] 10, 2013 9:15pm LAB TEST FORM REQUEST [id number] - Methicillin-Resist S.aureus DNA PCR September 18, [...] 2012 7:41am Name: RIKA URBINA Unit #: [id number] : 1935 Sex: F Loc / Svc: ED DOS: 02/23/14 Signed Report #: [id number] DIAGNOSTIC IMAGING REPORT TYPE OF EXAM: CT [...] Encounters Encounter Location Date/Time Departed Emergency Room [facility] 02/23/14 12:43pm Recent Diagnosis
--- OUTSIDE RECORDS SUMMARY | 2016-08-23 04:48 | XMS REPORT | Continuity of Care Document ---
Author Author [facility] Organization [facility] Address Unknown Phone Unavailable Support Name Relationship Address Phone SUSIE RUDD MD Caregiver [address] [place] [phone] KAYY BANKS DPM Caregiver [address] [place] [address] [phone] PAIGE URBINA Next Of Kin [address] [place] [address] C Insurance Providers Payer Name Policy Number Subscriber Name Relationship Medicare [id number] Aisha Urbina 17 Self Medicare Supp Wps [id number] Paige Urbina 01 Spouse Advance Directives Directive [...] 2 Tab PO DAILY 03/21/10 11/24/11 Discontinued [place]-3 Fatty Acids 2,400 Mg PO DAILY 03/21/10 Active Fluticasone Propionate [place] EA NOSTRIL NEEDED 03/21/10 Active Hydrocodone Bit/Acetaminophen [...] F (96.8 - 99.1) Temperature (Calculated Celsius) 36.06645 degrees C (36.0 - 37.3) Temperature Source [...] 33 U/L N 9- 52 COMMENT TO [facility] AT 0400 Albumin March 21, 2014 6:28am 4.2 G/DL N 3.5-5.0 COMMENT TO [facility] AT 0400 Albumin/Globulin Ratio March 21, 2014 6:28am 1.4 RATIO N 1.1-2.2 COMMENT TO [facility] AT 0400 Alkaline Phosphatase March 21, 2014 6:28am 100 U/L N 38-126 COMMENT TO [facility] AT 0400 Anion Gap March 21, 2014 6:28am 10 MEQ/L N 5-15 COMMENT TO [facility] AT 0400 Aspartate Amino Transf (AST/SGOT) March 21, 2014 6:28am 24 U/L N 14- 36 COMMENT TO [facility] AT 0400 BUN/Creatinine Ratio March 21, 2014 6:28am 16 RATIO N 6-26 COMMENT TO [facility] AT 0400 Basophils # (Auto) March 21, 2014 6:28am 0.1 T/MM3 N 0-0.2 COMMENT TO [facility] AT 0600 Basophils (%) (Auto) March 21, 2014 6:28am 0.7 % N 0-2 COMMENT TO [facility] AT 0600 Blood Urea Nitrogen March 21, 2014 6:28am 19.0 MG/DL H 7-17 COMMENT TO [facility] AT 0400 Calcium Level March 21, 2014 6:28am 9.7 MG/DL N 8.4-10.2 COMMENT TO [facility] AT 0400 Calculated Osmolality March 21, 2014 6:28am 267 MOSM/KG N 261-280 COMMENT TO [facility] AT 0400 Carbon Dioxide Level March 21, 2014 6:28am 27 MEQ/L N 22-30 COMMENT TO [facility] AT 0400 Chemistry Specimen Hemolysis March 21, [...] 6:28am 101 MEQ/L N 98-107 COMMENT TO [facility] AT 0400 Creatinine March 21, 2014 6:28am 1.2 MG/DL N 0.7-1.2 COMMENT TO [facility] AT 0400 Eosinophils # (Auto) March 21, 2014 6:28am 0.5 T/MM3 N 0-0.5 COMMENT TO [facility] AT 0600 Eosinophils (%) (Auto) March 21, 2014 6:28am 6.5 % H 0-4 COMMENT TO [facility] AT 0600 Globulin March 21, 2014 6:28am 2.9 G/DL N 2.4-3.6 COMMENT TO [facility] AT 0400 Glomerular Filtration Rate Calc March 21, 2014 6:28am 43 - COMMENT TO [facility] AT 0400 Glucose Level March 21, 2014 6:28am 89 MG/DL N 65-110 COMMENT TO [facility] AT 0400 Hematocrit March 21, 2014 6:28am 32.7 % L 36-46 COMMENT TO [facility] AT 0600 Hemoglobin March 21, 2014 6:28am 10.5 GM/DL L 12-16 COMMENT TO [facility] AT 0600 Icterus Index March 21, 2014 6:28am < 2 0-7 COMMENT TO [facility] AT 0400 Immature Granulocyte # (Auto) March 21, 2014 6:28am 0.01 T/MM3 N 0.00- 0.03 COMMENT TO [facility] AT 0600 Immature Granulocyte % (Auto) March 21, 2014 6:28am 0.1 % N 0.0-0.5 COMMENT TO [facility] AT 0600 Lab Scanned Report September 10, 2013 9:15pm LAB TEST FORM REQUEST [id number] - Lymphocytes # (Auto) March 21, 2014 [...] 6:28am 48.2 FL N 36.9-50.2 COMMENT TO [facility] AT 0600 Red Blood Count March 21, 2014 6:28am 3.42 M/MM3 L 4.00-5.20 COMMENT TO [facility] AT 0600 Sodium Level March 21, 2014 6:28am 138 MEQ/L N 134-144 COMMENT TO [facility] AT 0400 Total Bilirubin March 21, 2014 6:28am 0.40 MG/DL N 0.20-1.30 COMMENT TO [facility] AT 0400 Total Protein March 21, 2014 6:28am 7.1 G/DL N 6.3-8.2 COMMENT TO [facility] AT 0400 Turbidity March 21, 2014 6:28am < 20 0-20 COMMENT TO [facility] AT 0400 Urinalysis Comment September 23, 2012 [...] LABSHas specimen been collected/obtained? Y Urine Specific [place] September 23, 2012 5:45am 1.015 - COMMENT [...] 6:28am 7.3 T/MM3 N 4.5-11.0 COMMENT TO [facility] AT 0600 Gram Stain Hip, Intraoperative Site-Left September 24, 2012 7:41am Name: AISHA URBINA Unit #: [id number] : 1935 Sex: F Loc / Svc: [facility] DOS: 03/21/14 Signed Report #: [id number] DIAGNOSTIC IMAGING REPORT TYPE OF EXAM: FOOT [...] Encounters Encounter Location Date/Time Departed Emergency Room [facility] 02/23/14 12:43pm
--- NOTE | 2016-08-23 04:49 | NUR ---
REPORT GIVEN TO KINGA QUACH AT THIS TIME.
--- NOTE | 2016-08-23 05:00 | NUR ---
ADMISSION REPORT RECEIVED FROM MAIN VOSS FROM ED. PATIENT ARRIVED BY CART AND AMBULATED TO BED WITHOUT DIFFICULTY. PATIENT ALERT AND ORIENTED X3 AND VITAL SIGNS ARE STABLE ON ROOM AIR. PATIENT DENIES ANY CP, SOA, NAUSEA, OR VOMITING. ADMISSION COMPLETED AND PATIENT HAS RESTED QUIETLY IN ROOM SINCE. WILL CONTINUE TO MONITOR.
--- NOTE | 2016-08-23 05:00 | NUR ---
DEPART PT LEAVES VIA CART FOR TRANSPORT TO SURGICAL UNIT ROOM 118 AT THIS TIME.
[2016-08-23 05:05] VITALS: Ht 165.1 cm; Wt 73.0 kg
[2016-08-23 05:11] VITALS: BP 167/75; PULSE 60; RESP 16; TEMP 97.7; O2SAT 96
[2016-08-23 07:27] VITALS: BP 156/76; PULSE 60; RESP 18; TEMP 98.3; O2SAT 97
--- NOTE | 2016-08-23 07:53 | DI ---
Indication: ITS.REASON: chest pain PROCEDURE: CHEST 1 VIEW: Encounter: Initial Comparison: December 17, 2015 Findings: The lungs are stable in appearance without new focal airspace consolidation. There is no pleural effusion or pneumothorax. The heart size, pulmonary vascularity and mediastinal contours are unchanged. IMPRESSION: Stable appearance of the chest without acute cardiopulmonary disease. .
[2016-08-23] MEDS ORDERED: TRIA1TAB93 PO (09:00)
[2016-08-23] MEDS ORDERED: CHOL200026 (09:00)
[2016-08-23] MEDS ORDERED: ESOM40CA PO (09:00)
[2016-08-23] MEDS ORDERED: CALC300T37 PO (09:00)
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
--- NOTE | 2016-08-23 11:45 | HPPDOC ---
HORTENCIA GRANADO SENIOR PLANNING MANAGER 08/23/16 1134: HPI - Adult Date DATE: 08/23/16 TIME: 11:23 General Date of Admission Date of Admission: Aug 23, 2016 at 04:36 Chief Complaint: chest pain History of Present Illness Rika is an 81-year-old female who is known to Dr. West with a history of CAD with KS and stenting in 2005, Carotid artery disease, HTN, HLD, and CKD who presented to the ED for evaluation of chest pain. She does have nitroglycerin at home and used it about a week ago to alleviated chest pain. She did not follow-up with velocity shooter. Tonight patient awoke from sleep with anterior substernal chest pain described as tightness and heaviness with radiation to jaw and neck. She felt weak and dizzy during the episode. She took 3 nitroglycerin at home which alleviated the pain to an 8. She called EMS and on arrival her pain had almost essentially resolved. She arrived to the ED chest pain-free. EKG nondiagnostic. She was admitted for observation to Dr. West. Past Medical History Past Medical History Metabolic: hypercholesterolemia, hypertension ENMT: allergies Cardiac: CAD, KS GI: GERD Neurological: seizures Musculoskeletal: neck pain, osteoarthritis Psychological: depression Surgical History General: colonoscopy, neck, tonsils Cardiac: cardiac cath, cardiac stent, carotid endarterectomy Reproductive/: hysterectomy, tubal ligation Joint: carpal tunnel, foot, hip, shoulder Current Medications Home Meds Active Scripts Hydrocodone/Acetaminophen (Lortab 7.5-325 mg Tablet) 1 Each Tablet, 1 TAB PO BID for PAIN, #10 TAB Prov:JOSEPH CRUM MD 08/11/16 Estradiol (Estrace) 0.5 Mg Tablet, 1 TAB PO DAILY for 30 Days, #30 TAB 11 Refills Prov:HEIDY DUENAS MD 12/25/15 Aspirin (Aspir 81) 81 Mg Tablet., 1 TAB PO DAILY for 30 Days, #30 TAB 5 Refills Prov:HEIDY DUENAS MD 12/25/15 Ferrous Gluconate (Ferrous Gluconate) 324 Mg Tablet, 324 MG PO BIDWM, #60 TAB Prov:HEIDY DUENAS MD 12/25/15 Alprazolam (Alprazolam) 0.5 Mg Tablet, 1.5 MG PO HS for 30 Days, #90 TAB 0 Refills Prov:HEIDY DUENAS MD 12/25/15 Acetaminophen (Tylenol) 325 Mg Tablet, 650 MG PO QID Y for PAIN for 30 Days, Prov:HEIDY DUENAS MD 12/25/15 Magnesium Hydroxide (Milk of Magnesia) 400 Mg/5 Ml Oral.susp, 30 ML PO DAILY Y for CONSTIPATION for 30 Days Prov:PAIGE CAMACHO 12/18/15 Reported Medications Cholecalciferol (Vitamin D3) (Vitamin D-3) 2,000 Unit Capsule, DAILY 08/23/16 Calcium Carbonate (Tums X-Str) 300 Mg Tab.chew, 750 MG PO BID, TAB 08/23/16 Esomeprazole Magnesium (Nexium) 40 Mg Capsule.dr, 1 CAP PO DAILY, CAP 08/23/16 Triamterene/Hydrochlorothiazid (Maxzide 37.5 mg-25 mg Tablet) 1 Each Tablet, 0.5 TAB PO DAILY, TAB 08/23/16 Venlafaxine HCl (Effexor Xr) 75 Mg Cap.er.24h, 75 MG PO DAILY 11/10/15 Telmisartan (Micardis) 40 Mg Tablet, 40 MG PO DAILY 11/10/15 Carvedilol (Carvedilol) 12.5 Mg Tablet, 12.5 MG PO BIDWM 11/10/15 Multivitamin (Multi-Vitamin Daily) 1 Each Tablet, 1 TAB PO DAILY 09/08/15 [place]-3/Dha/Epa/Fish Oil (Fish Oil 1,400 mg Softgel) 1 Each Capsule.dr, 1400 MG PO DAILY 09/08/15 Pramipexole Di-HCl (Mirapex) 1 Mg Tablet, 1 MG PO 1500 09/08/15 Nitroglycerin (Nitroquick) 0.4 Mg Tab.subl, 0.4 MG SL Q5MIN Y for CHEST PAIN 01/12/12 Mirtazapine (Remeron) 15 Mg Tablet, 7.5 MG PO HS 11/24/11 Allergies: Coded Allergies: NKDA (Verified Allergy, Unknown, 08/23/16) Family History FOUND: other Vaccines 2015 2013 2013 2009 NO OPEN AREAS Social History Smoking Status: Never smoker Does patient use chewing tobac: No Substance Use Type: does not use Alcohol Intake: none Sexuality: male partner Advance Directives: No DPOA for Healthcare Only Review of Systems Constitutional: DENIES: chills, dizziness, fever, syncope Eyes Vision: DENIES: double vision ENMT Hearing: DENIES: tinnitus Balance: DENIES: vertigo Sinuses: NOT FOUND: rhinorrhea Mouth/Throat: DENIES: sore throat Cardiovascular chest pain, DENIES: dyspnea on exertion, murmur, orthopnea, paroxysmal nocturnal dysp Rhythm/Rate: DENIES: irregular beat, palpitations, tachycardia Pulmonary Respiratory: DENIES: cough, sputum GI Upper Abdomen: DENIES: vomiting Lower Abdomen: DENIES: diarrhea General: DENIES: dysuria Integumentary Skin: DENIES: rash, sores Neurological General: weakness, DENIES: headache, numbness, syncope All Other Systems All Other Systems: Reviewed (remainder of 10-point ROS Neg.) Physical Exam General General Nourishment: well nourished, well developed, apparent age Vital Signs Vital Signs Date Time Temp Pulse Resp B/P Pulse Ox O2 Delivery O2 Flow Rate FiO2 08/23/16 07:27 98.3 60 18 156/76 97 Room Air Height (Feet): 5 Height (Inches): 5.00 Telemetry Rhythm: Sinus Bradycardia ENMT Brief: FOUND: mucosa moist Neck Brief: NOT FOUND: JVD, carotid bruits Respiratory Brief: FOUND: clear all lilly, equal bilaterally, NOT FOUND: rales , wheezes Cardiovascular (brief) Cardiac Brief: FOUND: regular rate, regular rhythm, NOT FOUND: click, gallop, murmur, pedal edema Abdomen (brief) Abdominal Brief: FOUND: BS normo active x4, soft, NOT FOUND: tender Integumentary (brief) Integumentary Brief: FOUND: dry, pink, warm Neurologic RN Documented GCS Eye Opening: Verbal: Motor: Total: Psychiatric (brief) FOUND: alert, attentive, oriented Laboratory Laboratory Tests Test 08/23/16 03:21 08/23/16 09:40 White Blood Count 7.3T/MM3 Red Blood Count 3.41M/MM3 Hemoglobin 10.7GM/DL Hematocrit 32.8% Mean Corpuscular Volume 96.2UM3 Mean Corpuscular Hemoglobin 31.4UUG Mean Corpuscular Hemoglobin Concent 32.6GM/DL RDW Standard Deviation 49.8FL Platelet Count 292T/MM3 Mean Platelet Volume 9.1UM3 Immature Granulocyte % (Auto) 0.4% Neutrophils (%) (Auto) 67.0% Lymphocytes (%) (Auto) 18.3% Monocytes (%) (Auto) 11.2% Eosinophils (%) (Auto) 3.0% Basophils (%) (Auto) 0.1% Absolute Immature Granulocyte (auto 0.03T/MM3 Absolute Neutrophils (auto) 4.9T/MM3 Absolute Lymphocytes (auto) 1.3T/MM3 Absolute Monocytes (auto) 0.8T/MM3 Absolute Eosinophils (auto) 0.2T/MM3 Absolute Basophils (auto) 0.0T/MM3 Turbidity < 20 Sodium Level 140MEQ/L Potassium Level 4.8MEQ/L Chloride Level 105MEQ/L Carbon Dioxide Level 24MEQ/L Anion Gap 11MEQ/L Blood Urea Nitrogen 33.0MG/DL Creatinine 1.3MG/DL Glomerular Filtration Rate Calc 39 BUN/Creatinine Ratio 25RATIO Glucose Level 107MG/DL Calculated Osmolality 276MOSM/KG Calcium Level 9.7MG/DL Total Bilirubin 0.40MG/DL Icterus Index < 2 Aspartate Amino Transf (AST/SGOT) 19U/L Alanine Aminotransferase (ALT/SGPT) 31U/L Alkaline Phosphatase 97U/L Troponin I < 0.012ng/ml < 0.012ng/ml VT-Tut-N-Type Natriuretic Peptide 298PG/ML Total Protein 6.8G/DL Albumin 4.0G/DL Globulin 2.8G/DL Albumin/Globulin Ratio 1.4RATIO Chemistry Specimen Hemolysis < 15 < 15 Laboratory Tests Test 08/23/16 03:21 08/23/16 09:40 White Blood Count 7.3T/MM3 Red Blood Count 3.41M/MM3 Hemoglobin 10.7GM/DL Hematocrit 32.8% Mean Corpuscular Volume 96.2UM3 Mean Corpuscular Hemoglobin 31.4UUG Mean Corpuscular Hemoglobin Concent 32.6GM/DL RDW Standard Deviation 49.8FL Platelet Count 292T/MM3 Mean Platelet Volume 9.1UM3 Immature Granulocyte % (Auto) 0.4% Neutrophils (%) (Auto) 67.0% Lymphocytes (%) (Auto) 18.3% Monocytes (%) (Auto) 11.2% Eosinophils (%) (Auto) 3.0% Basophils (%) (Auto) 0.1% Absolute Immature Granulocyte (auto 0.03T/MM3 Absolute Neutrophils (auto) 4.9T/MM3 Absolute Lymphocytes (auto) 1.3T/MM3 Absolute Monocytes (auto) 0.8T/MM3 Absolute Eosinophils (auto) 0.2T/MM3 Absolute Basophils (auto) 0.0T/MM3 Turbidity < 20 Sodium Level 140MEQ/L Potassium Level 4.8MEQ/L Chloride Level 105MEQ/L Carbon Dioxide Level 24MEQ/L Anion Gap 11MEQ/L Blood Urea Nitrogen 33.0MG/DL Creatinine 1.3MG/DL Glomerular Filtration Rate Calc 39 BUN/Creatinine Ratio 25RATIO Glucose Level 107MG/DL Calculated Osmolality 276MOSM/KG Calcium Level 9.7MG/DL Total Bilirubin 0.40MG/DL Icterus Index < 2 Aspartate Amino Transf (AST/SGOT) 19U/L Alanine Aminotransferase (ALT/SGPT) 31U/L Alkaline Phosphatase 97U/L Troponin I < 0.012ng/ml < 0.012ng/ml IF-Ydk-Y-Type Natriuretic Peptide 298PG/ML Total Protein 6.8G/DL Albumin 4.0G/DL Globulin 2.8G/DL Albumin/Globulin Ratio 1.4RATIO Chemistry Specimen Hemolysis < 15 < 15 EKG Sinus Bradycardia, no ischemic ST changes Radiology DATE OF EXAM: 08/23/16 ORDERING DOCTOR: LUZ JONES MD TYPE OF EXAM: CHEST 1 VIEW REASON FOR EXAM: chest pain Indication: ITS.REASON: chest pain PROCEDURE: CHEST 1 VIEW: Encounter: Initial Comparison: December 17, 2015 Findings: The lungs are stable in appearance without new focal airspace consolidation. There is no pleural effusion or pneumothorax. The heart size, pulmonary vascularity and mediastinal contours are unchanged. IMPRESSION: Stable appearance of the chest without acute cardiopulmonary disease. Assessment & Plan Problems: (1) Chest pain, rule out acute myocardial infarction Status: Acute Assessment & Plan: Pain described as tightness, and heaviness. Troponin negative X2 and EKG without ischemic ST changes. (2) CAD (coronary artery disease) Onset Date: ~ 2005 Status: Chronic Qualifiers: Coronary Disease-Associated Artery/Lesion type: [place] artery [place] vs. transplanted heart: [place] heart Associated angina: with unspecified angina Qualified Codes: I25.119 - Atherosclerotic heart disease of [place] coronary artery with unspecified angina pectoris Assessment & Plan: KS and stent placed at [facility] in 2005 (3) Carotid artery disease Status: Resolved Qualifiers: Laterality: left Qualified Codes: I77.9 - Disorder of arteries and arterioles, unspecified Assessment & Plan: Underwent Carotid endarterectomy in the Summer 2015 (4) Essential (primary) hypertension Status: Chronic Assessment & Plan: Managed by Dr. Rudd (5) Mixed hyperlipidemia Status: Chronic Assessment & Plan: PCP manages Code Status Full Code, unverified Hospital Course Summary Disclaimer The hospital course summary below is not to be considered part of the above Progress Note. Hospital Course Summary Angina with known CAD and other vascular disease makes patient at high risk. Will proceed with Left heart Catheterization, slab grinder is occupied, will plan for tomorrow at noon. KADEN WEST MD 08/25/16 1037: Past Medical History Current Medications Home Meds Active Scripts Hydrocodone/Acetaminophen (Lortab 7.5-325 mg Tablet) 1 Each Tablet, 1 TAB PO BID for PAIN, #10 TAB Prov:JOSEPH CRUM MD 08/11/16 Estradiol (Estrace) 0.5 Mg Tablet, 1 TAB PO DAILY for 30 Days, #30 TAB 11 Refills Prov:HEIDY DUENAS MD 12/25/15 Aspirin (Aspir 81) 81 Mg Tablet.dr, 1 TAB PO DAILY for 30 Days, #30 TAB 5 Refills Prov:HEIDY DUENAS MD 12/25/15 Ferrous Gluconate (Ferrous Gluconate) 324 Mg Tablet, 324 MG PO BIDWM, #60 TAB Prov:HEIDY DUENAS MD 12/25/15 Alprazolam (Alprazolam) 0.5 Mg Tablet, 1.5 MG PO HS for 30 Days, #90 TAB 0 Refills Prov:HEIDY DUENAS MD 12/25/15 Acetaminophen (Tylenol) 325 Mg Tablet, 650 MG PO QID Y for PAIN for 30 Days, Prov:HEIDY DUENAS MD 12/25/15 Magnesium Hydroxide (Milk of Magnesia) 400 Mg/5 Ml Oral.susp, 30 ML PO DAILY Y for CONSTIPATION for 30 Days Prov:PAIGE CAMACHO 12/18/15 Reported Medications Cholecalciferol (Vitamin D3) (Vitamin D-3) 2,000 Unit Capsule, DAILY 08/23/16 Calcium Carbonate (Tums X-Str) 300 Mg Tab.chew, 750 MG PO BID, TAB 08/23/16 Esomeprazole Magnesium (Nexium) 40 Mg Capsule.dr, 1 CAP PO DAILY, CAP 08/23/16 Triamterene/Hydrochlorothiazid (Maxzide 37.5 mg-25 mg Tablet) 1 Each Tablet, 0.5 TAB PO DAILY, TAB 08/23/16 Venlafaxine HCl (Effexor Xr) 75 Mg Cap.er.24h, 75 MG PO DAILY 11/10/15 Telmisartan (Micardis) 40 Mg Tablet, 40 MG PO DAILY 11/10/15 Carvedilol (Carvedilol) 12.5 Mg Tablet, 12.5 MG PO BIDWM 11/10/15 Multivitamin (Multi-Vitamin Daily) 1 Each Tablet, 1 TAB PO DAILY 09/08/15 [place]-3/Dha/Epa/Fish Oil (Fish Oil 1,400 mg Softgel) 1 Each Capsule.dr, 1400 MG PO DAILY 09/08/15 Pramipexole Di-HCl (Mirapex) 1 Mg Tablet, 1 MG PO 1500 09/08/15 Nitroglycerin (Nitroquick) 0.4 Mg Tab.subl, 0.4 MG SL Q5MIN Y for CHEST PAIN 01/12/12 Mirtazapine (Remeron) 15 Mg Tablet, 7.5 MG PO HS 11/24/11 Allergies: Coded Allergies: NKDA (Verified Allergy, Unknown, 08/23/16) Assessment & Plan Plan/Intensity of Service After examining the patient I agree with the above assessment. I am involved in the formulation of the patient's plan of care. HORTENCIA GRANADO APRN Aug 23, 2016 11:34 KADEN WEST MD Aug 25, 2016 10:37
--- NOTE | 2016-08-23 13:25 | NUR ---
CM LACE SCORE IS 4, NO FURTHER FOLLOW UP INDICATED.
[2016-08-23] MEDS ORDERED: MILK OF MAGNESIA 30 ML SUSP PO PRN (13:45)
[2016-08-23] MEDS ORDERED: NORMAL SALINE 1,000 ML IV ONE (13:45)
[2016-08-23] MEDS ORDERED: ACETAMINOPHEN 325 MG TABLET PO PRN (13:45)
[2016-08-23] MEDS: ENOXAPARIN 100 MG/ML INJECTION SQ SCH ×2 (14:42→22:03)
[2016-08-23] MEDS: PRAMIPEXOLE 1 MG TABLET PO SCH (15:00)
[2016-08-23 16:18] VITALS: BP 161/77; PULSE 67; RESP 16; TEMP 98; O2SAT 97
[2016-08-23] MEDS: CARVEDILOL 12.5 MG TABLET PO SCH (18:10)
[2016-08-23] MEDS: FERROUS GLUCONATE 324 MG TABLET PO SCH (18:10)
--- NOTE | 2016-08-23 18:28 | NUR ---
END OF SHIFT REPORT PATIENT A/OX3. ROOM AIR. VITAL SIGNS STABLE. AFEBRILE. PT UP BY STANDBY ASSIST. TELE RUNNING NSR. BM DURING THE SHIFT. ADEQUATE URINARY OUTPUT. PT TO GO NPO AT MIDNIGHT FOR HEART CATH TOMORROW. WILL CONTINUE TO MONITOR.
[2016-08-23] MEDS ORDERED: ALPRAZOLAM 0.5 MG TABLET PO SCH (22:00)
[2016-08-23] MEDS ORDERED: MIRTAZAPINE 15 MG TABLET PO SCH (22:00)
[2016-08-23] MEDS: CALCIUM CARBONATE 750mg Chewable TAB PO SCH (22:00)
[2016-08-24] VITALS (20 sets, daily range): BP systolic 130–170; BP diastolic 71–81; PULSE 52–77; RESP 16–18; TEMP 97.2–98.3; O2SAT 93–98
--- NOTE | 2016-08-24 02:08 | NUR ---
Chart Check 24 hour chart check completed
[2016-08-24 05:26] LABS: BASOPHILS % (AUTO) 0.2 % (0-2); EOSINOPHILS # (AUTO) 0.2 T/MM3 (0-0.5); HCT - HEMATOCRIT 35.3 % (36-46); HGB - HEMOGLOBIN 11.3 GM/DL (12-16); IMMATURE GRANULOCYTE # (AUTO) 0.02 T/MM3 (0.00-0.03); IMMATURE GRANULOCYTE % (AUTO) 0.3 % (0.0-0.5); LYMPHOCYTES # (AUTO) 1.2 T/MM3 (1-4.8); LYMPHOCYTES % (AUTO) 19.8 % (23-45); MEAN CORPUSCULAR HGB 30.8 UUG (26-34); MEAN CORPUSCULAR VOLUME 96.2 UM3 (80-100); MEAN PLATELET VOLUME 9.2 UM3 (9.4-12.4); MONOCYTES # (AUTO) 0.6 T/MM3 (0-0.8); MONOCYTES % (AUTO) 10.6 % (0-9.0); NEUTROPHILS #(AUTO)-ABSOLUTE 3.9 T/MM3 (1.8-7.7); NEUTROPHILS % (AUTO) 66.1 % (33-66); RED BLOOD COUNT 3.67 M/MM3 (4.00-5.20); WBC - WHITE BLOOD COUNT 5.9 T/MM3 (4.5-11.0)
[2016-08-24 05:36] LABS: ANION GAP 9 MEQ/L (5-15); BUN/CREATININE RATIO 23 RATIO (6-26); CALCIUM 10.4 MG/DL (8.4-10.2); CHLORIDE 107 MEQ/L (98-107); CO2 - CARBON DIOXIDE 26 MEQ/L (22-30); CREATININE 1.1 MG/DL (0.7-1.2); GLOMERULAR FILTRATION RATE 48; GLUCOSE 114 MG/DL (65-110); POTASSIUM 4.8 MEQ/L (3.6-5); SODIUM 142 MEQ/L (134-144)
--- NOTE | 2016-08-24 06:30 | NUR ---
STATUS PATIENT A/OX3. PATIENT IS RESTING QUIETLY AT THIS TIME. PATIENT AMBULATED TO BATHROOM WITH WALKER BY ONE STANDBY ASSIST.NPO. ADEQUATE URINARY OUTPUT AT NIGHT. NO BM.VVS . PATIENT DENIES CHEST PAIN, SOA,OR N/V. BED ALARM ON .CONTINUE TO MONITOR.
[2016-08-24] MEDS ORDERED: TELMISARTAN 40 MG TABLET PO SCH (09:00)
[2016-08-24] MEDS ORDERED: VENLAFAXINE XR 75 MG CAPSULE PO SCH (09:00)
[2016-08-24] MEDS ORDERED: ESTRADIOL 0.5 MG TABLET PO SCH (09:00)
[2016-08-24] MEDS ORDERED: ASPIRIN *EC* 81mg TABLET PO SCH (09:00)
[2016-08-24] MEDS ORDERED: TRIAMTERENE/HCTZ 37.5mg/25mg TABLET PO SCH (09:00)
[2016-08-24] MEDS ORDERED: HEPARIN 1,000units in NS 500ml BAG IV ONE (09:27)
[2016-08-24] MEDS ORDERED: LIDOCAINE 1% (10mg/ml) 30ml SDV ONE (09:27)
[2016-08-24] MEDS: CARVEDILOL 12.5 MG TABLET PO SCH (09:33)
[2016-08-24] MEDS: CALCIUM CARBONATE 750mg Chewable TAB PO SCH (09:33)
[2016-08-24] MEDS: FERROUS GLUCONATE 324 MG TABLET PO SCH (09:34)
[2016-08-24] MEDS: ENOXAPARIN 100 MG/ML INJECTION SQ SCH (09:34)
--- NOTE | 2016-08-24 10:21 | NUR ---
COLLEEN MACIAS IN ROOM TO VISIT WITH PATIENT. SHE REPORTS SHE IS FROM [facility] AND PLANS TO RETURN THERE. PATIENT DENIES ANY NEEDS AT THIS TIME. Addendum: 08/24/16 at 1023 by BRANDIE EVERETT RN Amended: Links added.
[2016-08-24] MEDS ORDERED: NORMAL SALINE 1,000 ML IV SCH (10:45)
--- NOTE | 2016-08-24 11:22 | NUR ---
TO ASP NET PROGRAMMER PATIENT TAKEN TO ASP NET PROGRAMMER AT THIS TIME VIA CART AND ASP NET PROGRAMMER STAFF. PATIENT STABLE AND ON ROOM AIR AT TIME OF TRANSFER. CHART, BP CUFF, AND CONSENT SENT WITH PATIENT. WILL CONTINUE TO MONITOR.
[2016-08-24] MEDS ORDERED: FENTANYL 100mcg/2ml INJECTION ONE (11:28)
[2016-08-24] MEDS ORDERED: MIDAZOLAM 2mg/2ml INJECTION ONE (11:28)
[2016-08-24] MEDS ORDERED: VERAPAMIL 5mg/2ml INJECTION IV ONE (11:29)
[2016-08-24] MEDS ORDERED: NITROGLYCERIN 50mg/10ml INJECTION IV ONE (11:29)
[2016-08-24] MEDS ORDERED: SALINE FLUSH 10ml SYRINGE ONE (11:29)
[2016-08-24] MEDS ORDERED: MORPHINE SULFATE 4 MG SYRINGE IV PRN ×4 (11:45)
[2016-08-24] MEDS ORDERED: METOCLOPRAMIDE 10mg/2ml INJECTION IV PRN ×2 (11:45)
[2016-08-24] MEDS ORDERED: BISACODYL 5 MG E.C. TABLET PO PRN ×2 (11:45)
[2016-08-24] MEDS ORDERED: ONDANSETRON 4mg/2ml INJECTION IV PRN ×2 (11:45)
[2016-08-24] MEDS ORDERED: BISACODYL 10 MG SUPPOSITORY RECTALLY PRN ×2 (11:45)
[2016-08-24] MEDS ORDERED: HYDROCODONE/APAP 5 mg/325 mg TABLET PO PRN ×2 (11:45)
[2016-08-24] MEDS ORDERED: ATROPINE 1 MG/ML VIAL IV PRN ×2 (11:45)
[2016-08-24] MEDS ORDERED: ACETAMINOPHEN 325 MG TABLET PO PRN ×2 (11:45)
[2016-08-24] MEDS ORDERED: MAG-AL + SIM LIQUID 30 ML UDC PO PRN ×2 (11:45)
[2016-08-24] MEDS ORDERED: PROMETHAZINE 25 MG INJECTION IV PRN ×2 (11:45)
[2016-08-24] MEDS ORDERED: NITROGLYCERIN 0.4 MG SUBLINGUAL TABLET SL PRN ×2 (11:45)
[2016-08-24] MEDS ORDERED: LORAZEPAM 0.5 MG TABLET PO PRN ×2 (11:45)
[2016-08-24] MEDS ORDERED: MILK OF MAGNESIA 30 ML SUSP PO PRN ×2 (11:45)
[2016-08-24] MEDS ORDERED: LORAZEPAM 2 MG/ML INJECTION IV PRN ×2 (11:45)
--- NOTE | 2016-08-24 13:20 | NUR ---
BLEED PATIENT BLEEDING FROM RIGHT WRIST AT THIS TIME. 5 CC OF AIR REINSERTED TO TR BAND. PREVIOUSLY 4 CC OF AIR HAD BEEN REMOVED. PRESSURE HELD FOR FIVE MINUTES ONCE BLEED WAS NOTED. VITAL SIGNS STABLE DURING MANUAL PRESSURE. PATIENT SLIGHTLY HYPERTENSIVE. PATIENT IS NOT HYPOTENSIVE/TACHYCARDIC. ONCE PRESSURE WAS RELEASED AT 5 MINUTES, NO BLEEDING NOTED. NO AIR TO BE REMOVED UNTIL 1420. 15 MINUTE CHECKS REMAIN. MAXIME VILLEGAS, GREY GOODS MARKER RN AND HORTENCIA GRANADO APRN NOTIFIED. NO NEW ORDERS RECEIVED. WILL CONTINUE TO MONITOR.
[2016-08-24] MEDS: PRAMIPEXOLE 1 MG TABLET PO SCH (15:19)
--- NOTE | 2016-08-24 16:45 | CVPROF ---
CARDIAC CATHETERIZATION DATE OF PROCEDURE August 24, 2016 The patient is an 81-year-old lady with history of coronary artery disease who was admitted with unstable angina and was referred for further evaluation by cardiac catheterization and possible intervention. Informed consent was obtained after explaining the procedure and the potential risks to the patient who agreed to proceed with the procedure. PROCEDURE 1. Left heart catheterization. 2. Coronary angiography. 3. Left ventriculography. TECHNIQUE She was prepped and draped in the usual sterile techniques. Conscious sedation was performed using Versed and fentanyl. 1% lidocaine was used for local anesthesia. Using modified Seldinger technique, arterial access was obtained into the right radial artery with placement of a 6-[place] arterial sheath. 3000 units of heparin, 2.5 mg of verapamil, and 300 mcg of nitroglycerin were given through the arterial sheath. LEFT VENTRICULOGRAPHY Left ventriculography in single-plane WEISS shallow projection showed normal LV systolic function with ejection fraction of about 65% with no mitral regurgitation or gradient across the aortic valve. LVEDP was about 13. CORONARY ANGIOGRAPHY Left main was irregular distally with no hemodynamically significant lesions. It bifurcated into left anterior descending and left circumflex arteries. Left anterior descending artery appeared to have an endovascular stent which was patent. Proximal to the stent there was about 30% stenosis. LAD ended before the apex. There were two large diagonals which were free of significant lesions. Left circumflex artery had minor irregularities but no significant lesions. The right coronary artery was dominant with no significant lesions. PDA had an endovascular stent which was widely patent. Posterolateral artery had about 30% stenosis. The patient tolerated the procedure well with no complications. IMPRESSION 1. Coronary artery disease as described above. 2. Normal LV systolic function with ejection fraction of about 65%. PLAN Medical management. ARSENIOD
--- NOTE | 2016-08-24 16:58 | NUR ---
DISMISSAL PATIENT DISMISSED TO HOME FOR SELF CARE THE ER ENTRANCE. PATIENT DISMISSED VIA WHEELCHAIR. PATIENT'S WAS THE LEAD PRESSMAN HOME. STABLE AND ON ROOM AIR AT TIME OF DISMISSAL. GAUZE/TEGADERM DRESSING APPLIED TO SITE. PATIENT DID HAVE A SMALL HEMATOMA/BRUISE THAT HORTENCIA GRANADO APRN WAS NOTIFIED OF. OTHERWISE DRESSING CLEAN, DRY, INTACT. NO S/S OF BLEEDING. D/C INSTRUCTIONS REVIEWED WITH PATIENT AND . BOTH VERBALIZED UNDERSTANDING. TOPICS DISCUSSED INCLUDED: NEW MEDICATIONS, S/S TO REPORT, FOLLOW UP APPOINTMENTS, CARE OF TR BAND SITE, AND ACTIVITY/DIET. IV CATHETER REMOVED AND IV CATHETER TIP INTACT. PERSONAL BELONGINGS RETURNED.
--- OUTSIDE RECORDS SUMMARY | 2016-08-26 13:49 | XMS REPORT | Continuity of Care Document ---
Author Author [place] [facility] Organization [facility] Address Unknown Phone Unavailable Support Name Relationship Address Phone KADEN WEST MD Caregiver [address] [place] [address] [address] [place] [address] Unavailable KADEN WEST MD Caregiver [address] [place] [address] [address] [place] [address] Unavailable SUSIE RUDD MD Caregiver [address] [facility] [address] [place] [address] Unavailable LUZ JONES MD Caregiver [address] [place] [address] Unavailable MIGUEL URBINA Next Of Kin [address] [place], [place] [id number] C Insurance Providers Guarantor Aisha Urbina Address [address] [place] [address] C Email DENIED 16 Payer [facility] Medicare [facility] Policy Number [id number] Subscriber's Name Miguel Urbina Relationship 01 Spouse Effective Date 01 Payer Medicare Policy Number [id number] Subscriber's Name Aisha Urbina Relationship 18 Self Advance Directives Directive Response Recorded Date/Time Advanced Directives Type None 08/23/16 2:51am Dr Ceja Resuscitation Status Full Code, unverified 08/23/16 4:38am Resuscitation Documents on File No 08/23/16 5:07am DPOA for Healthcare Only No 08/23/16 11:45am Living Will No 08/23/16 5:07am Problems Active Problems Medical Problem Onset Date Status Anemia Unknown Acute CAD (coronary artery disease) ~2005 Chronic CKD (chronic kidney disease), stage III Unknown Chronic Carotid artery disease Unknown Resolved Carotid stenosis, left Unknown Resolved Chest pain, rule out acute myocardial infarction Unknown Acute Depression Unknown Chronic Dislocation of internal left hip prosthesis Unknown Acute Essential (primary) hypertension Unknown Chronic Failure of total hip arthroplasty Unknown Resolved GERD (gastroesophageal reflux disease) Unknown Chronic Hip dislocation, left Unknown Acute Hypertension Unknown Chronic Hypokalemia Unknown Acute Hypoxemia Unknown Acute Infection Unknown Resolved Laryngitis Unknown Acute Left hip pain Unknown Acute Lethargy Unknown Acute Mixed hyperlipidemia Unknown Chronic Overweight (BMI 25.0-29.9) Unknown Chronic Postoperative hypotension [...] Oral Daily 30 Days 30 Tablet 12/25/15 Calcium Carbonate (Tums X-Str) 300 Mg Tab.chew 750 Mg Oral Twice A Day 08/23/16 Carvedilol 12.5 Mg Tablet 12.5 Mg Oral Twice Daily With Meals 12/18 Cholecalciferol (Vitamin D3) (Vitamin D-3) 2,000 Unit Capsule Daily 08/23/16 Esomeprazole Magnesium (Nexium) 40 Mg Capsule. 1 Cap Oral Daily 08/23/16 Estradiol (Estrace) 0.5 Mg Tablet 1 Tab Oral Daily 30 Days 30 Tablet 12/25/15 Ferrous Gluconate 324 Mg Tablet 324 Mg Oral Twice Daily With Meals 60 Tablet 12/25/15 Hydrocodone/Acetaminophen (Lortab 7.5-325 Mg Tablet) 1 Each Tablet 1 Tab Oral Twice A Day for Pain 10 Tablet 08/11/16 Magnesium Hydroxide (Milk Of Magnesia) 400 Mg/5 Ml Oral.susp 30 Ml Oral Daily as needed for Constipation 30 Days 12/18/15 Mirtazapine (Remeron) 15 Mg Tablet 7.5 Mg Oral Bedtime 11/24/11 Multivitamin (Multi-Vitamin Daily) 1 Each Tablet 1 Tab Oral Daily 09/08/15 Nitroglycerin (Nitroquick) 0.4 Mg Tab.subl 0.4 Mg Sublingual Every 5 Minutes X 3 as needed for Chest Pain 01/12/12 Tichnor-3/Dha/Epa/Fish Oil (Fish Oil 1,400 Mg Softgel) 1 Each Capsule.dr 1,400 Mg Oral Daily 09/08/15 Pramipexole Di-Hcl (Mirapex) 1 Mg Tablet 1 Mg Oral 1500 09/08/15 Telmisartan (Micardis) 40 Mg Tablet 40 Mg Oral Daily 11/10/15 Triamterene/Hydrochlorothiazid (Maxzide 37.5 Mg-25 Mg Tablet) 1 Each Tablet 0.5 Tab Oral Daily 08/23/16 Venlafaxine Hcl (Effexor Xr) 75 Mg Cap.er.24h 75 Mg Oral Daily Past Home Medications Medication Directions Ordered Status Acetaminophen (Tylenol) 325 Mg Tablet, 650 Mg Oral Four Times Daily 12/18/15 Discontinued Acetaminophen 500 Mg Tablet, 1000 Mg Oral Bedtime as needed for Pain Discontinued Acetaminophen 500 Mg Tablet, 1000 Mg Oral Every 6 Hours as needed for Pain Discontinued Acetaminophen/Hydrocodone Bitart (Volin 7.5-325 Tablet) 1 Each Tablet, 0.5 Tab [...] Mg Oral As Needed 03/21/10 Discontinued Hydrocodone/Acetaminophen (Volin 5-325 Tablet) 5-325 Tablet, 1 Tab Oral [...] Directed 03/21/10 Discontinued Viraim D 2000 , 14538 Mg Oral Daily 03/21/10 Discontinued Social History Social History Problem Response Recorded Date/Time Onset Date Status Reason for Hospitalization chest pain 08/24/2016 4:16pm Not Applicable Not Applicable Chewing Tobacco Status No 08/13/2013 8:36am Not Applicable Not Applicable Hx Substance Use No 08/23/2016 3:35am Not Applicable Not Applicable Hx Alcohol Use Y OCCASIONAL 08/23/2016 3:35am Not Applicable Not Applicable Has the pt used tobacco in the last 12 months No 08/23/2016 5:14am Not Applicable Not Applicable Tobacco Usage none 12/20/2015 1:45pm Not Applicable Not Applicable Query Response Start Date Stop Date Smoking Status Never smoker Hospital Discharge Instructions Instructions: Care Instructions: I was in the hospital because (patient own words): "MY HEART HAD A HEART ATTACK, I THOUGHT I HAD SO I CALLED IN TO EMS" Discharge Diet: Resume heart healthy diet Discharge Activity: Limit activity for 2 days. No lifting more than 10 pounds, no pushing or pulling for 1 week. Follow Up Appointments: Follow up with Dr. West in : 2-4 weeks. Your name and phone number was left with the office staff to schedule your appointment. Pending Lab / Results: No Pending Lab Patient Instructions: Do not drive, operate machinery or drink alcohol for 2 days. New prescriptions: Expected Signs/Symptoms: Bruising and tenderness at the site. Notify Physician If: Site is bleeding, abnormal drainage, increased pain or fever of 101.5 or more. During Business Hours:: Call Dr. West's office at [phone]. After Business Hours:: Please call [phone] and have the envelope folding machine operator page the physician. Pain Management/Treatment: Over the counter pain medication if needed. Wound/Incision Care: Keep site clean and dry. No tub baths or swimming for 1 week. You may shower. Condition at time of discharge: Good Plan of Care Discharge Date 08/24/16 4:58pm Disposition 01 DISCHARGED HOME, SELF-CARE Instructions/Education Provided [facility] Heart Cath Trans Rad Prescriptions See Medication Section Care Plan and Goals See Discharge Instructions Section Functional Status Query Response Date Recorded Mobility Status Ambulatory August 23, 2016 5:19am Assistive Devices Front Wheeled Walker August 23, 2016 5:19am Activity Limitations Fatigue Pain August 23, 2016 5:19am Feeding Ability Independent August 23, 2016 5:19am Toileting Ability Independent August 23, 2016 5:19am Grooming Ability Independent August 23, 2016 5:19am Dressing Ability Independent August 23, 2016 5:19am Driving Ability Independent August 23, 2016 5:19am Housework Ability Independent August 23, 2016 5:19am Meal Preparation Ability Independent August 23, 2016 5:19am Stair Climbing Ability Independent August 23, 2016 5:19am Ability to complete ADL's impeded by Impaired Mobility August 23, 2016 5:19am Cognitive/Perceptual Impairments Impaired vision August 23, 2016 5:19am Visual Assistive Devices Glasses August 23, 2016 5:19am Preferred Method of Learning Hands on August 23, 2016 5:19am Allergies, Adverse Reactions, Alerts Allergen Type Severity Reaction Status Last Updated NKDA Allergy Unknown Active 08/23/16 Immunizations Query Response on File Recorded Date/Time Hx Influenza Vaccination Y MAR 2016 08/23/16 5:14am Hx Pneumococcal Vaccination Y 201308/23/16 5:14am Hx Tetanus, Diptheria, Pertussis Y 201202/23/14 12:59pm Hx Influenza Vaccination Y MAR 2016 08/23/16 5:14am Hx Tetanus Diptheria Y KEEPS ME UPDATED 09/08/15 11:43am Hx Tetanus, Diptheria, Pertussis Y 201202/23/14 12:59pm Hx Tetanus Toxoid Vaccination Yes 09/08/15 11:43am DTaP Vaccine History 200908/23/16 3:35am Influenza Vaccine Hx 201508/23/16 3:35am Tdap Vaccine Hx NO OPEN AREAS 08/11/16 9:57am Vital Signs Acute Vital Signs Vital Response Date/Time Temperature (Fahrenheit) 98.3 deg F (96.8 - 99.1) 08/24/2016 12:00pm Temperature (Calculated Celsius) 36.51831 degrees C (36.0 - 37.3) 08/24/2016 12:00pm Temperature Source Oral 08/24/2016 12:00pm Pulse Rate (adult) 62 bpm (60 - 100) 08/24/2016 4:45pm Respiratory Rate 16 breaths/min (10 - 20) 08/24/2016 12:00pm O2 Sat by Pulse Oximetry 98 % (90 - 100) 08/24/2016 4:45pm Oxygen Delivery Method Room Air 08/24/2016 4:45pm Oxygen Delivery Method Room Air 08/24/2016 7:32am Blood Pressure 142/72 mm Hg 08/24/2016 4:45pm Blood Pressure Source Automatic Cuff 08/24/2016 4:45pm Height (Feet) 5 feet 08/23/2016 11:45am Height (Inches) 5.00 inches 08/23/2016 11:45am Weight (Kilograms) 73.000 kg 08/24/2016 7:50am Body Mass Index (BMI) 27.4 08/23/2016 5:05am Results Laboratory Results Test Name Result Units Flags Reference Collection Date/Time Result Date/ Time Comments White Blood Count 5.9 T/MM3 4.5-11.0 08/24/2016 5:00am 08/24/2016 5: 26am Red Blood Count 3.67 M/MM3 L 4.00-5.20 08/24/2016 5:00am 08/24/2016 5: 26am Hemoglobin 11.3 GM/DL L 12-16 08/24/2016 5:00am 08/24/2016 5:26am Hematocrit 35.3 % L 36-46 08/24/2016 5:00am 08/24/2016 5:26am Mean Corpuscular Volume 96.2 UM3 80-100 08/24/2016 5:00am 08/24/2016 5: 26am Mean Corpuscular Hemoglobin 30.8 UUG 26-34 08/24/2016 5:00am 2016 5:26am Mean Corpuscular Hemoglobin Concent 32.0 GM/DL 31-37 08/24/2016 5:00am 08/24/2016 5:26am RDW Standard Deviation 49.3 FL 36.9-50.2 08/24/2016 5:00am 08/24/2016 5 :26am Platelet Count 274 T/MM3 130-400 08/24/2016 5:00am 08/24/2016 5:26am Mean Platelet Volume 9.2 UM3 L 9.4-12.4 08/24/2016 5:00am 08/24/2016 5: 26am Neutrophils (%) (Auto) 66.1 % H 33-66 08/24/2016 5:00am 08/24/2016 5: 26am Lymphocytes (%) (Auto) 19.8 % L 23-45 08/24/2016 5:00am 08/24/2016 5: 26am Monocytes (%) (Auto) 10.6 % H 0-9.0 08/24/2016 5:00am 08/24/2016 5:26am Eosinophils (%) (Auto) 3.0 % 0-4 08/24/2016 5:00am 08/24/2016 5:26am Basophils (%) (Auto) 0.2 % 0-2 08/24/2016 5:00am 08/24/2016 5:26am Immature Granulocyte % (Auto) 0.3 % 0.0-0.5 08/24/2016 5:00am 2016 5:26am Absolute Neutrophils (auto) 3.9 T/MM3 1.8-7.7 08/24/2016 5:00am 2016 5:26am Absolute Lymphocytes (auto) 1.2 T/MM3 1-4.8 08/24/2016 5:00am 2016 5:26am Absolute Monocytes (auto) 0.6 T/MM3 0-0.8 08/24/2016 5:00am 08/24/2016 5:26am Absolute Eosinophils (auto) 0.2 T/MM3 0-0.5 08/24/2016 5:00am 2016 5:26am Absolute Basophils (auto) 0.0 T/MM3 0-0.2 08/24/2016 5:00am 08/24/2016 5:26am Absolute Immature Granulocyte (auto 0.02 T/MM3 0.00-0.03 08/24/2016 5: 00am 08/24/2016 5:26am Icterus Index < 2 0-7 08/24/2016 5:00am 08/24/2016 5:36am Chemistry Specimen Hemolysis < 15 0-25 08/24/2016 5:00am 08/24/2016 5 :36am 0-25: Specimen Exhibited No Hemolysis. Turbidity < 20 0-20 08/24/2016 5:00am 08/24/2016 5:36am Sodium Level 142 MEQ/L 134-144 08/24/2016 5:00am 08/24/2016 5:36am Potassium Level 4.8 MEQ/L 3.6-5 08/24/2016 5:00am 08/24/2016 5:36am Chloride Level 107 MEQ/L 98-107 08/24/2016 5:00am 08/24/2016 5:36am Carbon Dioxide Level 26 MEQ/L 22-30 08/24/2016 5:00am 08/24/2016 5: 36am Anion Gap 9 MEQ/L 5-15 08/24/2016 5:00am 08/24/2016 5:36am Blood Urea Nitrogen 25.0 MG/DL H 7-17 08/24/2016 5:00am 08/24/2016 5: 36am Creatinine 1.1 MG/DL D 0.7-1.2 08/24/2016 5:00am 08/24/2016 5:39am BUN/Creatinine Ratio 23 RATIO 6-26 08/24/2016 5:00am 08/24/2016 5:36am Glomerular Filtration Rate Calc 48 08/24/2016 5:00am 08/24/2016 5: 36am Glucose Level 114 MG/DL H 65-110 08/24/2016 5:00am 08/24/2016 5:36am Calculated Osmolality 278 MOSM/KG 261-280 08/24/2016 5:0008/24/2016 5:36am Calcium Level 10.4 MG/DL H 8.4-10.2 08/24/2016 5:00am 08/24/2016 5:36am Total Bilirubin 0.40 MG/DL 0.20-1.30 08/23/2016 3:2108/23/2016 3: 56am Alkaline Phosphatase 97 U/L 38-126 08/23/2016 3:08/23/2016 3:56am Total Protein 6.8 G/DL 6.3-8.2 08/23/2016 3:08/23/2016 3:56am Albumin 4.0 G/DL 3.5-5.0 08/23/2016 3:08/23/2016 3:56am Globulin 2.8 G/DL 2.4-3.6 08/23/2016 3:08/23/2016 3:56am Albumin/Globulin Ratio 1.4 RATIO 1.1-2.2 08/23/2016 3:08/23/2016 3 :56am Aspartate Amino Transf (AST/SGOT) 19 U/L 14-36 08/23/2016 3:2016 3:56am Alanine Aminotransferase (ALT/SGPT) 31 U/L 9-52 08/23/2016 3:08/23 3:56am Troponin I < 0.012 ng/ml 0-0.12 08/23/2016 9:42pm 08/23/2016 10:13pm Troponin values with a difference of 55% increase from orginal troponin value represent a true biological DELTA value. (%increase Calc=Orginal Troponin value, divided by subsequent Troponin value, multiplied by 100) XK-Wqz-[id number]-Type Natriuretic Peptide 298 PG/ML H 0-175 08/23/2016 3: 4:04am Rule in cut points: <50 years old=450; 50-75 years old=900; >75 years old=1800; When utilizing ProBNP rule-in cut points, adjustment for impaired renal function is typically not required. Name: AISHA URBINA Unit #: [id number] : 1935 Sex: F Admit Date: 08/23/16 Loc / Svc: SRG Discharge Date: DIAGNOSTIC IMAGING REPORT Report #: [id number] [facility] ISAIAS [place] Indication: ITS.REASON: chest pain PROCEDURE: CHEST 1 VIEW: Encounter: Initial Comparison: December 17, 2015 Findings: The lungs are stable in appearance without new focal airspace consolidation. There is no pleural effusion or pneumothorax. The heart size, pulmonary vascularity and mediastinal contours are unchanged. IMPRESSION: Stable appearance of the chest without acute cardiopulmonary disease. . Procedures Procedure Status Date Provider(s) Routine venipuncture Completed 08/11/16 X-ray exam l-s spine 2/3 vws Completed 08/11/16 X-ray exam hip uni 2-3 views Completed 08/11/16 Comprehen metabolic panel Completed 08/11/16 Complete cbc w/auto diff wbc Completed 08/11/16 Emergency dept visit Completed 08/11/16 Encounters Encounter Location Arrival/Admit Date Discharge/Depart Date Attending Provider Discharged Inpatient (obs) [facility] 08/23/16 4:36am 08/24/16 4: 58pm KADEN WEST MD Departed Emergency Room [facility] 08/11/16 9:41am 08/11/16 12: 53pm JOSEPH CRUM MD
--- OUTSIDE RECORDS SUMMARY | 2016-08-26 13:49 | XMS REPORT | Continuity of Care Document ---
Author Author [facility] Organization [facility] Address Unknown Phone Unavailable Support Name Relationship Address Phone SHIV KHAN MD Caregiver [address] [place] [address] [place] [address] WIN KHAN MD Caregiver [address] [place] [address] [place] [address] SUSIE PALACIO MD Caregiver [address] [facility] [address] [place] [address] MIGUEL URBIAN Next Of Kin [address] [place] [address] C Insurance Providers Payer Name Policy Number Subscriber Name Relationship Medicare [id number] Rika Urbina 17 Self Medicare Supp Wps [id number] Miguel Urbina 01 Spouse Problems Medical Problems [...] 2 Tab PO DAILY 03/21/10 11/24/11 Discontinued [place]-3 Fatty Acids 2,400 Mg PO DAILY 03/21/10 Active Fluticasone Propionate [place] EA NOSTRIL NEEDED 03/21/10 Active Hydrocodone Bit/Acetaminophen [...] F (96.8 - 99.1) Temperature (Calculated Celsius) 35.99997 degrees C (36.0 - 37.3) Pulse Rate [...] LABSHas specimen been collected/obtained? Y Urine Specific [place] September 23, 2012 5:45am 1.015 - COMMENT [...] 10, 2013 9:15pm LAB TEST FORM REQUEST [id number] - Methicillin-Resist S.aureus DNA PCR September 18, [...] 2012 7:41am Name: RIKA URBINA Unit #: [id number] : 1935 Sex: F Loc / Svc: ED DOS: 02/23/14 Signed Report #: [id number] DIAGNOSTIC IMAGING REPORT TYPE OF EXAM: CT [...] Encounters Encounter Location Date/Time Departed Emergency Room [facility] 02/23/14 12:43pm Recent Diagnosis
--- OUTSIDE RECORDS SUMMARY | 2016-08-26 13:49 | XMS REPORT | Continuity of Care Document ---
Author Author [facility] Organization [facility] Address Unknown Phone Unavailable Support Name Relationship Address Phone SUSIE RUDD MD Caregiver [address] [place] [phone] KAYY BANKS DPM Caregiver [address] [place] [phone] PAIGE URBINA Next Of Kin [address] [place] [address] C Insurance Providers Payer Name Policy Number Subscriber Name Relationship Medicare [id number] Aisha Urbina 17 Self Medicare Supp Wps [id number] Paige Urbina 01 Spouse Advance Directives Directive [...] 2 Tab PO DAILY 03/21/10 11/24/11 Discontinued [place]-3 Fatty Acids 2,400 Mg PO DAILY 03/21/10 Active Fluticasone Propionate [place] EA NOSTRIL NEEDED 03/21/10 Active Hydrocodone Bit/Acetaminophen [...] F (96.8 - 99.1) Temperature (Calculated Celsius) 36.34260 degrees C (36.0 - 37.3) Temperature Source [...] 33 U/L N 9- 52 COMMENT TO [facility] AT 0400 Albumin March 21, 2014 6:28am 4.2 G/DL N 3.5-5.0 COMMENT TO [facility] AT 0400 Albumin/Globulin Ratio March 21, 2014 6:28am 1.4 RATIO N 1.1-2.2 COMMENT TO [facility] AT 0400 Alkaline Phosphatase March 21, 2014 6:28am 100 U/L N 38-126 COMMENT TO [facility] AT 0400 Anion Gap March 21, 2014 6:28am 10 MEQ/L N 5-15 COMMENT TO [facility] AT 0400 Aspartate Amino Transf (AST/SGOT) March 21, 2014 6:28am 24 U/L N 14- 36 COMMENT TO [facility] AT 0400 BUN/Creatinine Ratio March 21, 2014 6:28am 16 RATIO N 6-26 COMMENT TO [facility] AT 0400 Basophils # (Auto) March 21, 2014 6:28am 0.1 T/MM3 N 0-0.2 COMMENT TO [facility] AT 0600 Basophils (%) (Auto) March 21, 2014 6:28am 0.7 % N 0-2 COMMENT TO [facility] AT 0600 Blood Urea Nitrogen March 21, 2014 6:28am 19.0 MG/DL H 7-17 COMMENT TO [facility] AT 0400 Calcium Level March 21, 2014 6:28am 9.7 MG/DL N 8.4-10.2 COMMENT TO [facility] AT 0400 Calculated Osmolality March 21, 2014 6:28am 267 MOSM/KG N 261-280 COMMENT TO [facility] AT 0400 Carbon Dioxide Level March 21, 2014 6:28am 27 MEQ/L N 22-30 COMMENT TO [facility] AT 0400 Chemistry Specimen Hemolysis March 21, [...] 6:28am 101 MEQ/L N 98-107 COMMENT TO [facility] AT 0400 Creatinine March 21, 2014 6:28am 1.2 MG/DL N 0.7-1.2 COMMENT TO [facility] AT 0400 Eosinophils # (Auto) March 21, 2014 6:28am 0.5 T/MM3 N 0-0.5 COMMENT TO [facility] AT 0600 Eosinophils (%) (Auto) March 21, 2014 6:28am 6.5 % H 0-4 COMMENT TO [facility] AT 0600 Globulin March 21, 2014 6:28am 2.9 G/DL N 2.4-3.6 COMMENT TO [facility] AT 0400 Glomerular Filtration Rate Calc March 21, 2014 6:28am 43 - COMMENT TO [facility] AT 0400 Glucose Level March 21, 2014 6:28am 89 MG/DL N 65-110 COMMENT TO [facility] AT 0400 Hematocrit March 21, 2014 6:28am 32.7 % L 36-46 COMMENT TO [facility] AT 0600 Hemoglobin March 21, 2014 6:28am 10.5 GM/DL L 12-16 COMMENT TO [facility] AT 0600 Icterus Index March 21, 2014 6:28am < 2 0-7 COMMENT TO [facility] AT 0400 Immature Granulocyte # (Auto) March 21, 2014 6:28am 0.01 T/MM3 N 0.00- 0.03 COMMENT TO [facility] AT 0600 Immature Granulocyte % (Auto) March 21, 2014 6:28am 0.1 % N 0.0-0.5 COMMENT TO [facility] AT 0600 Lab Scanned Report September 10, 2013 9:15pm LAB TEST FORM REQUEST [id number] - Lymphocytes # (Auto) March 21, 2014 [...] 6:28am 48.2 FL N 36.9-50.2 COMMENT TO [facility] AT 0600 Red Blood Count March 21, 2014 6:28am 3.42 M/MM3 L 4.00-5.20 COMMENT TO [facility] AT 0600 Sodium Level March 21, 2014 6:28am 138 MEQ/L N 134-144 COMMENT TO [facility] AT 0400 Total Bilirubin March 21, 2014 6:28am 0.40 MG/DL N 0.20-1.30 COMMENT TO [facility] AT 0400 Total Protein March 21, 2014 6:28am 7.1 G/DL N 6.3-8.2 COMMENT TO [facility] AT 0400 Turbidity March 21, 2014 6:28am < 20 0-20 COMMENT TO [facility] AT 0400 Urinalysis Comment September 23, 2012 [...] LABSHas specimen been collected/obtained? Y Urine Specific [place] September 23, 2012 5:45am 1.015 - COMMENT [...] 6:28am 7.3 T/MM3 N 4.5-11.0 COMMENT TO [facility] AT 0600 Gram Stain Hip, Intraoperative Site-Left September 24, 2012 7:41am Name: AISHA URBINA Unit #: [id number] : 1935 Sex: F Loc / Svc: [facility] DOS: 03/21/14 Signed Report #: [id number] DIAGNOSTIC IMAGING REPORT TYPE OF EXAM: FOOT [...] Encounters Encounter Location Date/Time Departed Emergency Room [facility] 02/23/14 12:43pm
== END 2016-08-24 16:58 | disposition home or self-care (01) ==
LOC: ED 02:51 → SCU 04:36 → SRG 04:36 → EDHOLD 04:36 → UNDOADMOB 04:36 → EDHOLD 05:00 → SRG 05:00 → SCU 08-24 16:58 → UNDODISOB 08-24 16:58
PROVIDERS: ATTEND Internal Medicine Cardiovascular Disease
DX: I25.700 Atherosclerosis of coronary artery bypass graft(s), unspecified, with unstable angina pectoris (principal); I65.22 Occlusion and stenosis of left carotid artery; J44.9 Chronic obstructive pulmonary disease, unspecified; I12.9 Hypertensive chronic kidney disease with stage 1 through stage 4 chronic kidney disease, or unspecified chronic kidney disease; N18.9 Chronic kidney disease, unspecified; E78.2 Mixed hyperlipidemia; Z95.5 Presence of coronary angioplasty implant and graft; I25.2 Old myocardial infarction; K21.9 Gastro-esophageal reflux disease without esophagitis; F32.9 Major depressive disorder, single episode, unspecified; Z79.82 Long term (current) use of aspirin; Z79.899 Other long term (current) drug therapy; Z96.642 Presence of left artificial hip joint; Z98.1 Arthrodesis status
CPT/HCPCS: 36415; 71010; 80048; 80053; 83880; 84484; 85025; 93005; 93458; 96372; 99284; A9270; C1893; G0378; J1644; J1650; J2250; J3010; J3490; J7030; Q9967; 96360; 96361; 99218

== ENCOUNTER → 2016-08-29 | Outpatient (CLI) | payer MEDICARE, OTHER ==
[~2016-08-29] MED LIST changes: +CALC300T37 PO; +CHOL200026; -DIPH25CA84 PO; +ESOM40CA PO; -HYDR-4246 PO; +LIDOCAINE 1% (10mg/ml) 30ml SDV ONE; +MethylPREDNISolone ACETATE 80mg/1ml ONE; -PRED10TA PO; +TRIA1TAB93 PO
--- NOTE | 2016-09-12 09:14 | PDPROCED ---
Procedure DATE OF PROCEDURE 08/29/16 PREPROCEDURE DIAGNOSIS Right hip pain. POSTPROCEDURE DIAGNOSIS Right hip pain. PROCEDURE Intraarticular injection of right hip with Depo-Medrol. SURGEON Sofie Farris MD COMPLICATIONS None. ANESTHESIA Local. INDICATIONS Please see office notes. DESCRIPTION OF PROCEDURE The patient and the right hip were identified. The patient was placed on the fluoroscopy table and the right anterior hip was prepped and draped in normal sterile fashion. Ethyl Chloride spray was used to anesthetize the skin and a 25 gauge needle was used to inject 1% lidocaine at the anterior lateral thigh. This needle was then removed and a spinal needle was introduced into the same path and again lidocaine was used to anesthetize the path down to the hip joint. Confirmation that the needle was within the capsule of the hip joint was done by placing 1 cc of Omnipaque dye under fluoroscopic imaging until the capsule lines appeared on fluoroscopy confirming that the needle was intraarticular. 160 mg of Depo-Medrol was then injected in to the hip joint. The needle was removed. The site was then cleaned with alcohol and a Band-aid was placed. The patient tolerated the procedure well. FOLLOW UP 3-4 weeks or sooner with any problems or concerns. MARTHA FARRIS MD Sep 12, 2016 09:14
== END ==
LOC: IMA 07:46
PROVIDERS: ATTEND Orthopaedic Surgery
DX: M16.11 Unilateral primary osteoarthritis, right hip (principal)
CPT/HCPCS: 20610; 77002; J1040; Q9967

== ENCOUNTER → 2016-09-16 | Outpatient (CLI) | payer MEDICARE, OTHER ==
[~2016-09-16] MED LIST changes: +IOHEXOL 180 MG/ML 20ml INJECTION ONE; -LIDOCAINE 1% (10mg/ml) 30ml SDV ONE; +LIDOCAINE 1% (10mg/ml) 5ml VIAL ONE; +MethylPREDNISolone ACETATE 40mg/1ml ONE; -MethylPREDNISolone ACETATE 80mg/1ml ONE
--- NOTE | 2016-09-16 15:10 | DI ---
Indication: ITS.REASON: M54.5 LOW BACK PAIN; M70.60 PROCEDURE: MRI LUMBAR SPINE W/O CONTRAST: Encounter: Initial Comparison: Lumbar spine radiographs dated August 11, 2016 Technique: Multiplanar multisequence MR imaging of the lumbar spine was performed without contrast. Findings: Alignment of the lumbar spine is stable. 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 Mild levoscoliosis. Mild to moderate biconcave compression fracture of L1 appears acute with edema within the vertebral body. There is also a minimally depressed superior endplate fracture of the right aspect of L2 which also appears acute with surrounding bone marrow edema. No additional acute fracture seen. The conus medullaris terminates normally at L1. The paraspinal soft tissues are unremarkable. Segmental analysis: T12-L1: No focal disk herniation, central canal or neural foraminal stenosis. L1-L2: Right central and foraminal disk protrusion without significant central canal stenosis. There is narrowing of the right lateral recess with severe right foraminal stenosis and impingement on the exiting right L1 nerve root. No significant left neural foraminal stenosis. L2-L3: Moderate disk height loss with left lateral bulging. No focal central canal stenosis. Mild bilateral neural foraminal stenosis. L3-L4: Small annular disk bulge without significant central canal stenosis. No significant neural foraminal stenosis. L4-L5: Significant disk height loss. No focal protrusion or central canal stenosis. Mild bony left neural foraminal stenosis. No significant right neural foraminal narrowing. L5-S1: Spondylolisthesis without focal central canal stenosis. Severe bilateral neural foraminal stenosis with disk and osteophyte material impinging upon both exiting L5 nerve roots. Impression: 1. Acute L1 and L2 fractures. 2. Degenerative disk and facet disease as above with areas of severe nerve root impingement on the right at L1-L2 and bilaterally at L5-S1. .
--- NOTE | 2016-09-16 15:47 | DI ---
Indication:ITS.REASON: M54.5 LBP; M70.60 Trochanteric bursitis Procedure:EPIDURAL INJ.SPINE W FLUO CATH LUMBAR EPIDURAL INJECTION: The patient has low back and radicular pain. The patient has not had any previous epidurals. The details of the procedure, including the benefits, risks, and alternatives were explained to the patient. All of their questions were answered. They stated that they understood and wished to proceed. Informed consent was then obtained. A pre-procedural timeout was performed to confirm the correct patient and procedure. Utilizing aseptic technique, local lidocaine anesthetic, and fluoroscopic guidance throughout, a 22-gauge spinal needle was directed into the lumbar epidural space via an interlaminar approach at the L4-5 level. Contrast was injected to assure proper positioning of the needle tip. A fluoroscopic image was then taken and archived. Subsequently, 120 mg Depo-Medrol was injected into the epidural space. The patient tolerated the procedure well. IMPRESSION: Successful lumbar epidural steroid injection. Fluoroscopy dose: 6.68 mGy (Cumulative air kerma) Bebo Carlisle RPA/ADALGISA performed this under my personal supervision. .
== END ==
LOC: IMA 12:57
DX: M48.56XA Collapsed vertebra, not elsewhere classified, lumbar region, initial encounter for fracture (principal); M41.9 Scoliosis, unspecified; M43.06 Spondylolysis, lumbar region; M51.16 Intervertebral disc disorders with radiculopathy, lumbar region; M51.17 Intervertebral disc disorders with radiculopathy, lumbosacral region; M54.5 Low back pain
CPT/HCPCS: 62323; 72148; J1030; Q9965

== ENCOUNTER → 2016-11-01 | Emergency (ER) | payer MEDICARE, OTHER ==
[~2016-11-01] VITALS: Ht 167.6 cm; Wt 77.5 kg
[~2016-11-01] MED LIST changes: +ACETAMINOPHEN 500 MG TABLET PO ONE; -IOHEXOL 180 MG/ML 20ml INJECTION ONE; -LIDOCAINE 1% (10mg/ml) 5ml VIAL ONE; -MethylPREDNISolone ACETATE 40mg/1ml ONE; +SIMV20TA6 PO
[2016-11-01 08:58] VITALS: TEMP 98.4; Ht 167.6 cm; Wt 77.5 kg
--- OUTSIDE RECORDS SUMMARY | 2016-11-01 09:01 | XMS REPORT | Continuity of Care Document ---
Author Author [place] [facility] Organization [facility] Address Unknown Phone Unavailable Support Name Relationship Address Phone SUSIE PALACIO MD Caregiver [address] [place] [address] Unavailable ROBERTA HURT MD Caregiver [address] [place] [address] Unavailable PAIGE URBINA Next Of Kin [address] [place], [place] [id number] C Insurance Providers Guarantor Aisha Urbina Address [address] [place] [address] C Email DENIED 16 Payer Medicare [facility] W[facility] Policy Number [id number] Subscriber's Name Paige Urbina Relationship 01 Spouse Effective Date 01 Payer Medicare Policy Number [id number] Subscriber's Name Aisha Urbina Relationship 18 Self Advance Directives Directive Response Recorded Date/Time Ordered Resuscitation Status Full Code, unverified 09/23/16 5:10pm Resuscitation Documents on File No 09/26/16 7:30am DPOA for Healthcare Only No 09/26/16 7:30am Living Will No 09/26/16 7:30am Problems Active Problems Medical Problem Onset Date Status Anemia Unknown Acute CAD (coronary artery disease) ~2005 Chronic CKD (chronic kidney disease), stage III Unknown Chronic Carotid artery disease Unknown Resolved Carotid stenosis, left Unknown Resolved Depression Unknown [...] Acute Past Problems Medical Problem Onset Date Chest pain, rule out acute myocardial infarction Unknown Contusion of head Unknown Forehead laceration Unknown [...] 90 Tablet Aspirin (Aspir 81) 81 Mg Tablet. 1 Tab Oral Daily 30 Days 30 [...] 3 as needed for Chest Pain 01/12/12 [place]-3/Dha/Epa/Fish Oil (Fish Oil 1,400 Mg Softgel) 1 Each Capsule.dr Gomez,400 Mg Oral Daily 09/08/15 Pramipexole Di-Hcl (Mirapex) [...] as needed for Pain Discontinued Acetaminophen/Hydrocodone Bitart ([place] 7.5-325 Tablet) 1 Each Tablet, 0.5 Tab [...] Mg Oral As Needed 03/21/10 Discontinued Hydrocodone/Acetaminophen ([place] 5-325 Tablet) 5-325 Tablet, 1 Tab Oral [...] Directed 03/21/10 Discontinued Viraim D 2000 , 49850 Mg Oral Daily 03/21/10 Discontinued Social History Social History Problem Response Recorded Date/Time Onset Date Status Chewing Tobacco Status No 08/13/2013 8:36am Not Applicable Not Applicable Hx Substance Use No 09/26/2016 7:25am Not Applicable Not Applicable Hx Alcohol Use Y OCCASIONAL 09/26/2016 7:25am Not Applicable Not Applicable Has the pt used tobacco in the last 12 months No 09/26/2016 7:25am Not Applicable Not Applicable Tobacco Usage none 12/20/2015 1:45pm Not Applicable Not Applicable Query Response Start Date Stop Date Smoking Status Never smoker Hospital Discharge Instructions No hospital discharge instructions. Plan of Care Discharge Date 09/26/16 12:05pm Prescriptions See Medication Section Functional Status Query Response Date Recorded Ability to complete ADL's impeded by No change September 26, 2016 7:30am Allergies, Adverse Reactions, Alerts Allergen Type Severity Reaction Status Last Updated Ibuprofen Adverse Reaction Intermediate Active 09/26/16 Immunizations Query Response on File Recorded Date/Time Hx Influenza Vaccination Y MAR 2016 09/26/16 7:25am Hx Pneumococcal Vaccination Y 201309/26/16 7:25am Hx Tetanus, Diptheria, Pertussis Y 201202/23/14 12:59pm Hx Influenza Vaccination Y MAR 2016 09/26/16 7:25am Hx Tetanus Diptheria Y KEEPS ME UPDATED 09/08/15 11:43am Hx Tetanus, Diptheria, Pertussis Y 201202/23/14 12:59pm Hx Tetanus Toxoid Vaccination Yes 09/08/15 11:43am DTaP Vaccine History 200908/23/16 3:35am Influenza Vaccine Hx 201508/23/16 3:35am Tdap Vaccine Hx NO OPEN AREAS 08/11/16 9:57am Vital Signs Acute Vital Signs Vital Response Date/Time Temperature (Fahrenheit) 97.2 deg F (96.8 - 99.1) 09/26/2016 9:45am Temperature (Calculated Celsius) 36.31954 degrees C (36.0 - 37.3) 09/26/2016 9:45am Temperature Source Temporal 09/26/2016 9:45am Pulse Rate (adult) 72 bpm (60 - 100) 09/26/2016 12:00pm Respiratory Rate 16 breaths/min (10 - 20) 09/26/2016 12:00pm O2 Sat by Pulse Oximetry 94 % (90 - 100) 09/26/2016 12:00pm Oxygen Delivery Method Room Air 08/24/2016 4:45pm Oxygen Delivery Method Room Air 09/26/2016 12:00pm Oxygen Flow Rate 2.00 L/min 09/26/2016 11:30am Blood Pressure 142/78 mm Hg 09/26/2016 12:00pm Blood Pressure Source Automatic Cuff 09/26/2016 12:00pm Height (Feet) 5 feet 09/26/2016 7:11am Height (Inches) 6.00 inches 09/26/2016 7:11am Weight (Kilograms) 72.000 kg 09/26/2016 7:11am Body Mass Index (BMI) 25.6 09/26/2016 7:11am Results Laboratory Results Test Name Result Units [...] 5:36am Total Bilirubin 0.40 MG/DL 0.20-1.30 08/23/2016 3:08/23/2016 3: 56am Alkaline Phosphatase 97 U/L 38-126 08/23/2016 3:08/23/2016 3:56am Total Protein 6.8 G/DL 6.3-8.2 08/23/2016 3:08/23/2016 3:56am Albumin 4.0 G/DL 3.5-5.0 08/23/2016 3:08/23/2016 3:56am Globulin 2.8 G/DL 2.4-3.6 08/23/2016 3:08/23/2016 3:56am Albumin/Globulin Ratio 1.4 RATIO 1.1-2.2 08/23/2016 3:08/23/2016 3 :56am Aspartate Amino Transf (AST/SGOT) 19 U/L 14-36 08/23/2016 3:212016 3:56am Alanine Aminotransferase (ALT/SGPT) 31 U/L 9-52 08/23/2016 3:08/23 3:56am Troponin I < 0.012 ng/ml 0-0.12 08/23/2016 9:42pm 08/23/2016 10:13pm Troponin values with a difference of 55% increase from orginal troponin value represent a true biological DELTA value. (%increase Calc=Orginal Troponin value, divided by subsequent Troponin value, multiplied by 100) DS-Dqt-D-Type Natriuretic Peptide 298 PG/ML H 0-175 08/23/2016 3: 4:04am Rule in cut points: <50 years old=450; 50-75 years old=900; >75 years old=1800; When utilizing ProBNP rule-in cut points, adjustment for impaired renal function is typically not required. Procedures Procedure Status Date Provider(s) Routine venipuncture Completed 08/11/16 X-ray exam l-s spine 2/3 vws Completed 08/11/16 X-ray exam hip uni 2-3 views Completed 08/11/16 Comprehen metabolic panel Completed 08/11/16 Complete cbc w/auto diff wbc Completed 08/11/16 Emergency dept visit Completed 08/11/16 Routine venipuncture Completed 08/23/16 Routine venipuncture Completed 08/23/16 Routine venipuncture Completed 08/23/16 Routine venipuncture Completed 08/23/16 Routine venipuncture Completed 08/23/16 Chest x-ray 1 view frontal Completed 08/23/16 Metabolic panel total ca Completed 08/23/16 Comprehen metabolic panel Completed 08/23/16 Assay of natriuretic peptide Completed 08/23/16 Assay of troponin quant Completed 08/23/16 Assay of troponin quant Completed 08/23/16 Assay of troponin quant Completed 08/23/16 Assay of troponin quant Completed 08/23/16 Complete cbc w/auto diff wbc Completed 08/23/16 Complete cbc w/auto diff wbc Completed 08/23/16 Electrocardiogram tracing Completed 08/23/16 L hrt artery/ventricle angio Completed 08/23/16 KADEN WEST MD Ther/proph/diag inj sc/im Completed 08/23/16 Emergency dept visit Completed 08/23/16 [id number] ITEM OR SERVICE Completed 08/23/16 469800CMH-PXHZMSB ITEM OR SERVICE Completed 08/23/16 034839ZGC-NEVJICS ITEM OR SERVICE Completed 08/23/16 110310WVC-LAMNXPF ITEM OR SERVICE Completed 08/23/16 958103NSY-YGVYSWA ITEM OR SERVICE Completed 08/23/16 351008RQV-NMGUEFN ITEM OR SERVICE Completed 08/23/16 697884TQT-ETXXZEP ITEM OR SERVICE Completed 08/23/16 293228YFM-UOIUIAB ITEM OR SERVICE Completed 08/23/16 111354MWA-VDQMWTN ITEM OR SERVICE Completed 08/23/16 094635AJO-HMUIXDQ ITEM OR SERVICE Completed 08/23/16 047424SKI-SUQGFGW ITEM OR SERVICE Completed 08/23/16 387461YRK-GXCQLNO ITEM OR SERVICE Completed 08/23/16 577948HEH-PEWIJPI ITEM OR SERVICE Completed 08/23/16 853130ROC-RGRLQWE ITEM OR SERVICE Completed 08/23/16 943913HVZ-VUAYJHA ITEM OR SERVICE Completed 08/23/16 671930AYE-XVYVHGS ITEM OR SERVICE Completed 08/23/16 820321GKO-DCTZDZU ITEM OR SERVICE Completed 08/23/16 249026PMC-HHASVHZ ITEM OR SERVICE Completed 08/23/16016307UQBQY THAN PEEL-AWAY Completed 08/23/16"HOSPITAL OBSERVATION SERVICE, PER HOUR" Completed 08/23/16"HOSPITAL OBSERVATION SERVICE, PER HOUR" Completed 08/23/16"HOSPITAL OBSERVATION SERVICE, PER HOUR" Completed 08/23/16"INJECTION, HEPARIN SODIUM, PER 1000 UNITS" Completed 08/23/16"INJECTION, HEPARIN SODIUM, PER 1000 UNITS" Completed 08/23/16"INJECTION, ENOXAPARIN SODIUM, 10 MG" Completed 08/23/16"INJECTION, ENOXAPARIN SODIUM, 10 MG" Completed 08/23/16"INJECTION, ENOXAPARIN SODIUM, 10 MG" Completed 08/23/16"INJECTION, MIDAZOLAM HYDROCHLORIDE, PER 1 MG" Completed 08/23/16"INJECTION, FENTANYL CITRATE, 0.1 MG" Completed 08/23/16635633CVWSNDJZWDQE DRUGS Completed 08/23/16"INFUSION, NORMAL SALINE SOLUTION , 1000 CC" Completed 08/23/16"INFUSION, NORMAL SALINE SOLUTION , 1000 CC" Completed 08/23/16"LOW OSMOLAR CONTRAST MATERIAL, 300-399 MG/ML IODINE C Completed Drain/inj joint/bursa w/o us Completed 08/29/16 MARTHA MARIN MD Needle localization by xray Completed 08/29/16"INJECTION, METHYLPREDNISOLONE ACETATE, 80 MG" Completed 08/29/16"LOW OSMOLAR CONTRAST MATERIAL, 300-399 MG/ML IODINE C Completed Encounters Encounter Location Arrival/Admit Date Discharge/Depart Date Attending Provider Registered [facility] 09/26/16 6:53am ROBERTA HURT MD Registered [facility] 09/16/16 12:57pm SUSIE PALACIO MD Registered [facility] 08/29/16 7:46am MARTHA MARIN MD Departed Surgical Day Care [facility] 08/23/16 4:36am 08/24/16 4: 58pm KADEN WEST MD Departed Emergency Room [facility] 08/11/16 9:41am 08/11/16 12: 53pm JOSEPH CRUM MD
--- OUTSIDE RECORDS SUMMARY | 2016-11-01 09:02 | XMS REPORT | Continuity of Care Document ---
Author Author LIVE Organization LIVE Address Unknown Phone Unavailable Support Name Relationship Address Phone SHIV KHAN MD Caregiver [address] [place] [address] [place] [address] WIN KHAN MD Caregiver [address] [place] [address] [place] [address] SUSIE PALACIO MD Caregiver [address] [facility] [address] [place] [address] MIGUEL URBINA Next Of Kin [address] [place] [address] C Insurance Providers Payer Name Policy Number Subscriber Name Relationship Medicare [id number] Rika Urbina 18 Self Medicare Supp Wps [id number] Miguel Urbina 01 Spouse Problems Medical Problems [...] 2 Tab PO DAILY 03/21/10 11/24/11 Discontinued [place]-3 Fatty Acids 2,400 Mg PO DAILY 03/21/10 Active Fluticasone Propionate [place] EA NOSTRIL NEEDED 03/21/10 Active Hydrocodone Bit/Acetaminophen [...] F (96.8 - 99.1) Temperature (Calculated Celsius) 35.32665 degrees C (36.0 - 37.3) Pulse Rate [...] LABSHas specimen been collected/obtained? Y Urine Specific [place] September 23, 2012 5:45am 1.015 - COMMENT [...] 10, 2013 9:15pm LAB TEST FORM REQUEST [id number] - Methicillin-Resist S.aureus DNA PCR September 18, [...] 2012 7:41am Name: RIKA URBINA Unit #: [id number] : 1935 Sex: F Loc / Svc: ED DOS: 02/23/14 Signed Report #: [id number] DIAGNOSTIC IMAGING REPORT TYPE OF EXAM: CT [...] Encounters Encounter Location Date/Time Departed Emergency Room [facility] 02/23/14 12:43pm Recent Diagnosis
--- OUTSIDE RECORDS SUMMARY | 2016-11-01 09:02 | XMS REPORT | Continuity of Care Document ---
Author Author [place] [facility] Organization [facility] Address Unknown Phone Unavailable Support Name Relationship Address Phone KADEN WEST MD Caregiver [address] [place] [address] [address] [place] [address] Unavailable KADEN WSET MD Caregiver [address] [place] [address] [address] [place] [address] Unavailable SUSIE RUDD MD Caregiver [address] [facility] [address] [place] [address] Unavailable LUZ JONES MD Caregiver [address] [facility] [place] [address] Unavailable MIGUEL URBINA Next Of Kin [address] [place], [place] [id number] C Insurance Providers Guarantor Aisha Urbina Address [address] [place] [address] C Email DENIED 16 Payer [facility] Medicare [facility] Wps Policy Number [id number] Subscriber's Name Miguel Urbina Relationship 01 Spouse Effective Date 01 Payer Medicare Policy Number [id number] Subscriber's Name Aisha Urbina Relationship 18 Self [...] 3 as needed for Chest Pain 01/12/12 [place]-3/Dha/Epa/Fish Oil (Fish Oil 1,400 Mg Softgel) 1 [...] as needed for Pain Discontinued Acetaminophen/Hydrocodone Bitart ([place] 7.5-325 Tablet) 1 Each Tablet, 0.5 Tab [...] Mg Oral As Needed 03/21/10 Discontinued Hydrocodone/Acetaminophen ([place] 5-325 Tablet) 5-325 Tablet, 1 Tab Oral [...] Directed 03/21/10 Discontinued Viraim D 2000 , 05790 Mg Oral Daily 03/21/10 Discontinued Social History [...] Business Hours:: Call Dr. West's office at [phone]. After Business Hours:: Please call [phone] and have the keller machine operator page the physician. Pain Management/Treatment: Over the counter pain medication if needed. Wound/Incision Care: Keep site clean and dry. No tub baths or swimming for 1 week. You may shower. Condition at time of discharge: Good Plan of Care Discharge Date 08/24/16 4:58pm Instructions/Education Provided NM Heart Cath Trans Rad Prescriptions See Medication Section Functional Status Query [...] 2016 08/23/16 5:14am Hx Tetanus Diptheria Y DR.RUDD KEEPS ME UPDATED 09/08/15 11:43am Hx Tetanus, Diptheria, Pertussis Y 201202/23/14 12:59pm Hx Tetanus Toxoid Vaccination Yes 09/08/15 11:43am DTaP Vaccine History 200908/23/16 3:35am Influenza Vaccine Hx 201508/23/16 3:35am Tdap Vaccine Hx NO OPEN AREAS 08/11/16 9:57am Vital Signs Acute Vital Signs Vital Response Date/Time Temperature (Fahrenheit) 98.3 deg F (96.8 - 99.1) 08/24/2016 12:00pm Temperature (Calculated Celsius) 36.39154 degrees C (36.0 - 37.3) 08/24/2016 12:00pm [...] 5:36am Calculated Osmolality 278 MOSM/KG 261-280 08/24/2016 5:00am 08/24/2016 5:36am Calcium Level 10.4 MG/DL H 8.4-10.2 [...] by subsequent Troponin value, multiplied by 100) GZ-Wpn-D-Type Natriuretic Peptide 298 PG/ML H 0-175 08/23/2016 3: 4:04am Rule in cut points: <50 years old=450; 50-75 years old=900; >75 years old=1800; When utilizing ProBNP rule-in cut points, adjustment for impaired renal function is typically not required. Name: AISHA URBINA Unit #: [id number] : 1935 Sex: F Admit Date: 08/23/16 Loc / Svc: SRG Discharge Date: DIAGNOSTIC IMAGING REPORT Report #: [id number] [facility] ISAIAS [place] Indication: ITS.REASON: chest pain PROCEDURE: [...] Arrival/Admit Date Discharge/Depart Date Attending Provider Departed Surgical Day Care [facility] 08/23/16 4:36am 08/24/16 4: 58pm KADEN WEST MD Departed Emergency Room [facility] 08/11/16 9:41am 08/11/16 12: 53pm JOSEPH CRUM MD
--- OUTSIDE RECORDS SUMMARY | 2016-11-01 09:02 | XMS REPORT | Continuity of Care Document ---
Author Author [facility] Organization [facility] Address Unknown Phone Unavailable Support Name Relationship Address Phone SUSIE RUDD MD Caregiver [address] [place] [phone] KAYY BANKS DPM Caregiver [address] [place] [phone] PAIGE URBINA Next Of Kin [address] [place] [address] C Insurance Providers Payer Name Policy Number Subscriber Name Relationship Medicare [id number] Aisha Urbina 17 Self Medicare Supp Wps [id number] Paige Urbina 01 Spouse Advance Directives Directive [...] 2 Tab PO DAILY 03/21/10 11/24/11 Discontinued [place]-3 Fatty Acids 2,400 Mg PO DAILY 03/21/10 Active Fluticasone Propionate [place] EA NOSTRIL NEEDED 03/21/10 Active Hydrocodone Bit/Acetaminophen [...] F (96.8 - 99.1) Temperature (Calculated Celsius) 36.04921 degrees C (36.0 - 37.3) Temperature Source [...] 33 U/L N 9- 52 [place] [facility] [place] Albumin March 21, 2014 6:28am 4.2 G/DL N 3.5-5.0 COMMENT [place] [facility] [place] Albumin/Globulin Ratio March 21, 2014 6:28am 1.4 RATIO N 1.1-2.2 COMMENT [place] [facility] [place] Alkaline Phosphatase March 21, 2014 6:28am 100 U/L N 38-126 COMMENT [place] [facility] [place] Anion Gap March 21, 2014 6:28am 10 MEQ/L N 5-15 COM[place] [facility] [place] Aspartate Amino Transf (AST/SGOT) March 21, 2014 6:28am 24 U/L N 14- 36 COM[place] [facility] [place] BUN/Creatinine Ratio March 21, 2014 6:28am 16 RATIO N 6-26 COMMENT [place] [facility] [place] Basophils # (Auto) March 21, 2014 6:28am 0.1 T/MM3 N 0-0.2 COMMENT [place] [facility] [place] Basophils (%) (Auto) March 21, 2014 6:28am 0.7 % N 0-2 COMMENT [place] [facility] Blood Urea Nitrogen March 21, 2014 6:28am 19.0 MG/DL H 7-17 COMMENT [place] [facility] [place] Calcium Level March 21, 2014 6:28am 9.7 MG/DL N 8.4-10.2 COMMENT TO [facility] [place] Calculated Osmolality March 21, 2014 6:28am 267 MOSM/KG N 261-280 COMMENT [place] [facility] [place] Carbon Dioxide Level March 21, 2014 6:28am 27 MEQ/L N 22-30 COMMENT [place] [facility] [place] Chemistry Specimen Hemolysis March [...] 6:28am 101 MEQ/L N 98-107 COM[place] [facility] [place] Creatinine March 21, 2014 6:28am 1.2 MG/DL N 0.7-1.2 COMMENT [place] [facility] [place] Eosinophils # (Auto) March 21, 2014 6:28am 0.5 T/MM3 N 0-0.5 COMMENT [place] [facility] [place] Eosinophils (%) (Auto) March 21, 2014 6:28am 6.5 % H 0-4 COMMENT [place] [facility] [place] Globulin March 21, 2014 6:28am 2.9 G/DL N 2.4-3.6 COMMENT TO [facility] [place] Glomerular Filtration Rate Calc March 21, 2014 6:28am 43 - COMMENT TO [facility] [place] Glucose Level March 21, 2014 6:28am 89 MG/DL N 65-110 COMMENT [place] [facility] [place] Hematocrit March 21, 2014 6:28am 32.7 % L 36-46 COMMENT [place] [facility] [place] Hemoglobin March 21, 2014 6:28am 10.5 GM/DL L 12-16 COMMENT TO [facility] [place] Icterus Index March 21, 2014 6:28am < 2 0-7 COMMENT TO [facility] AT 0400 Immature Granulocyte # (Auto) March 21, 2014 6:28am 0.01 T/MM3 N 0.00- 0.03 COMMENT TO [facility] AT 0600 Immature Granulocyte % (Auto) March 21, 2014 6:28am 0.1 % N 0.0-0.5 COMMENT TO [facility] AT 0600 Lab Scanned Report September 10, 2013 9:15pm LAB TEST FORM REQUEST [id number] - Lymphocytes # (Auto) March 21, 2014 [...] 6:28am 48.2 FL N 36.9-50.2 COM[place] [facility] [place] Red Blood Count March 21, 2014 6:28am 3.42 M/MM3 L 4.00-5.20 COMMENT TO [facility] [place] Sodium Level March 21, 2014 6:28am 138 MEQ/L N 134-144 COMMENT TO [facility] [place] Total Bilirubin March 21, 2014 6:28am 0.40 MG/DL N 0.20-1.30 COMMENT TO [facility] [place] Total Protein March 21, 2014 6:28am 7.1 G/DL N 6.3-8.2 COMMENT TO [facility] [place] Turbidity March 21, 2014 6:28am < 20 0-20 COMMENT TO [facility] [place] Urinalysis Comment September 23, [...] LABSHas specimen been collected/obtained? Y Urine Specific [place] September 23, 2012 5:45am 1.015 - COMMENT [...] 6:28am 7.3 T/MM3 N 4.5-11.0 COM[place] [facility] [place] Gram Stain Hip, Intraoperative Site-Left September 24, 2012 7:41am Name: AISHA URBINA Unit #: [id number] : 1935 Sex: F Loc / S[place] [facility]: 03/21/14 Signed Report #: [id number] DIAGNOSTIC IMAGING REPORT TYPE OF EXAM: FOOT [...] Encounters Encounter Location Date/Time Departed Emergency Room [facility] 02/23/14 12:43pm
--- OUTSIDE RECORDS SUMMARY | 2016-11-01 09:24 | XMS REPORT | Continuity of Care Document ---
Author Author [facility] Organization [facility] Address Unknown Phone Unavailable Support Name Relationship Address Phone SUSIE RUDD MD Caregiver [address] [place] [phone] KAYY BANKS DPM Caregiver [address] [place] [address] [phone] PAIGE URBINA Next Of Kin [address] [place] [address] C Insurance Providers Payer Name Policy Number Subscriber Name Relationship Medicare [id number] Aisha Urbina 17 Self Medicare Supp Wps [id number] Paige Urbina 01 Spouse Advance Directives Directive [...] 2 Tab PO DAILY 03/21/10 11/24/11 Discontinued [place]-3 Fatty Acids 2,400 Mg PO DAILY 03/21/10 Active Fluticasone Propionate [place] EA NOSTRIL NEEDED 03/21/10 Active Hydrocodone Bit/Acetaminophen [...] F (96.8 - 99.1) Temperature (Calculated Celsius) 36.97387 degrees C (36.0 - 37.3) Temperature Source [...] 33 U/L N 9- 52 COMMENT TO [facility] [place] Albumin March 21, 2014 6:28am 4.2 G/DL N 3.5-5.0 COMMENT TO [facility] Albumin/Globulin Ratio March 21, 2014 6:28am 1.4 RATIO N 1.1-2.2 COMMENT TO [facility] Alkaline Phosphatase March 21, 2014 6:28am 100 U/L N 38-126 COMMENT TO [facility]400 Anion Gap March 21, 2014 6:28am 10 MEQ/L N 5-15 COMMENT TO [facility]400 Aspartate Amino Transf (AST/SGOT) March 21, 2014 6:28am 24 U/L N 14- 36 COMMENT TO [facility] BUN/Creatinine Ratio March 21, 2014 6:28am 16 RATIO N 6-26 COMMENT TO [facility]400 Basophils # (Auto) March 21, 2014 6:28am 0.1 T/MM3 N 0-0.2 COMMENT TO [facility]600 Basophils (%) (Auto) March 21, 2014 6:28am 0.7 % N 0-2 COMMENT TO [facility]600 Blood Urea Nitrogen March 21, 2014 6:28am 19.0 MG/DL H 7-17 COMMENT TO [facility]400 Calcium Level March 21, 2014 6:28am 9.7 MG/DL N 8.4-10.2 COMMENT TO [facility]400 Calculated Osmolality March 21, 2014 6:28am 267 MOSM/KG N 261-280 COMMENT TO [facility]400 Carbon Dioxide Level March 21, 2014 6:28am 27 MEQ/L N 22-30 COMMENT TO [facility]400 Chemistry Specimen Hemolysis March 21, [...] 6:28am 101 MEQ/L N 98-107 COMMENT TO [facility]400 Creatinine March 21, 2014 6:28am 1.2 MG/DL N 0.7-1.2 COMMENT TO [facility] Eosinophils # (Auto) March 21, 2014 6:28am 0.5 T/MM3 N 0-0.5 COMMENT TO [facility] Eosinophils (%) (Auto) March 21, 2014 6:28am 6.5 % H 0-4 COMMENT TO [facility]600 Globulin March 21, 2014 6:28am 2.9 G/DL N 2.4-3.6 COMMENT TO [facility]400 Glomerular Filtration Rate Calc March 21, 2014 6:28am 43 - COMMENT TO [facility]400 Glucose Level March 21, 2014 6:28am 89 MG/DL N 65-110 COMMENT TO [facility]400 Hematocrit March 21, 2014 6:28am 32.7 % L 36-46 COMMENT TO [facility]600 Hemoglobin March 21, 2014 6:28am 10.5 GM/DL L 12-16 COMMENT TO [facility]600 Icterus Index March 21, 2014 6:28am < 2 0-7 COMMENT TO [facility] AT 0400 Immature Granulocyte # (Auto) March 21, 2014 6:28am 0.01 T/MM3 N 0.00- 0.03 COMMENT TO [facility] AT 0600 Immature Granulocyte % (Auto) March 21, 2014 6:28am 0.1 % N 0.0-0.5 COMMENT TO [facility] AT 0600 Lab Scanned Report September 10, 2013 9:15pm LAB TEST FORM REQUEST [id number] - Lymphocytes # (Auto) March 21, 2014 [...] 6:28am 48.2 FL N 36.9-50.2 COMMENT TO [facility]600 Red Blood Count March 21, 2014 6:28am 3.42 M/MM3 L 4.00-5.20 COMMENT TO [facility]600 Sodium Level March 21, 2014 6:28am 138 MEQ/L N 134-144 COMMENT TO [facility]400 Total Bilirubin March 21, 2014 6:28am 0.40 MG/DL N 0.20-1.30 COMMENT TO [facility]400 Total Protein March 21, 2014 6:28am 7.1 G/DL N 6.3-8.2 COMMENT TO [facility]400 Turbidity March 21, 2014 6:28am < 20 0-20 COMMENT TO [facility]400 Urinalysis Comment September 23, 2012 [...] LABSHas specimen been collected/obtained? Y Urine Specific [place] September 23, 2012 5:45am 1.015 - COMMENT [...] 6:28am 7.3 T/MM3 N 4.5-11.0 COMMENT TO [facility] Gram Stain Hip, Intraoperative Site-Left September 24, 2012 7:41am Name: AISHA URBINA Unit #: [id number] : 1935 Sex: F Loc / Svc: [facility] DOS: 03/21/14 Signed Report #: [id number] DIAGNOSTIC IMAGING REPORT TYPE OF EXAM: FOOT [...] Encounters Encounter Location Date/Time Departed Emergency Room [facility] 02/23/14 12:43pm
--- OUTSIDE RECORDS SUMMARY | 2016-11-01 09:24 | XMS REPORT | Continuity of Care Document ---
Author Author [facility] Organization [facility] Address Unknown Phone Unavailable Support Name Relationship Address Phone SHIV KHAN MD Caregiver [address] [place] [address] [place] [address] WIN KHAN MD Caregiver [address] [place] [address] [place] [phone] SUSIE PALACIO MD Caregiver [address] [facility] [address] [place] [address] MIGUEL URBINA Next Of Kin [address] [place] [address] C Insurance Providers Payer Name Policy Number Subscriber Name Relationship Medicare [id number] Rika Urbina 17 Self Medicare Supp Wps [id number] Miguel Urbina 01 Spouse Problems Medical Problems [...] 2 Tab PO DAILY 03/21/10 11/24/11 Discontinued [place]-3 Fatty Acids 2,400 Mg PO DAILY 03/21/10 Active Fluticasone Propionate [place] EA NOSTRIL NEEDED 03/21/10 Active Hydrocodone Bit/Acetaminophen [...] F (96.8 - 99.1) Temperature (Calculated Celsius) 35.11721 degrees C (36.0 - 37.3) Pulse Rate [...] LABSHas specimen been collected/obtained? Y Urine Specific [place] September 23, 2012 5:45am 1.015 - COMMENT [...] 10, 2013 9:15pm LAB TEST FORM REQUEST [id number] - Methicillin-Resist S.aureus DNA PCR September 18, [...] 2012 7:41am Name: RIKA URBINA Unit #: [id number] : 1935 Sex: F Loc / Svc: ED DOS: 02/23/14 Signed Report #: [id number] DIAGNOSTIC IMAGING REPORT TYPE OF EXAM: CT [...] Encounters Encounter Location Date/Time Departed Emergency Room [facility] 02/23/14 12:43pm Recent Diagnosis
--- NOTE | 2016-11-01 09:37 | ERPDOC ---
Departure Disposition Decision Date: November 01, 2016 Disposition Decision Time: 10:26 Disposition: 01 DISCHARGED HOME, SELF-CARE Impression Impression Impression: Primary Impression: Closed head injury Encounter type: initial encounter Qualified Codes: S09.90XA - Unspecified injury of head, initial encounter Additional Impression: Contusion Encounter type: initial encounter Contusion area: upper arm Laterality: right Qualified Codes: S40.021A - Contusion of right upper arm, initial encounter Severity: Moderate Condition: Improved Seen By: Physician only Referrals: SUSIE PALACIO MD (Family) 2 Days Patient Instructions: Head Injury (ED) Problems/Meds/Labs Reviewed?: Yes Medications reviewed and manag: Yes Follow up care ordered?: Yes Mental Status: Alert, Oriented HPI - Fall/Injury General Chief Complaint: Fall Stated Complaint: FALL Time Seen by Provider: 09:17 Source: patient Exam Limitations: no limitations HPI - Fall/Injury Initial Comments 81-year-old female presents to emergency department with a chief complaint of suffering a mechanical fall earlier today. Patient states she was in her garage attempting to set on a chair the rolls and the chair rolled out from under her causing her to fall over backwards and strike her head from the seated position. She denies neck pain or loss of consciousness. Patient notes a mild dull headache at the site of impact. No radiation. Patient is not anticoagulated. Patient also notes a mild pain in the right shoulder without radiation. Patient denies any other complaints or associated symptoms. Symptoms have been persistent in nature since onset. She was at home when the incident occurred. She notes that the pain increases with palpation of the affected area and improves with rest and positioning. 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 Farris 2012 Past Medical History Metabolic: hypercholesterolemia, hypertension ENMT: allergies Cardiac: CAD, [place] GI: GERD Neurological: seizures Musculoskeletal: neck pain, osteoarthritis Psychological: depression Surgical History General: colonoscopy, neck, tonsils Cardiac: cardiac cath, cardiac stent, carotid endarterectomy Reproductive/: hysterectomy, tubal ligation Joint: carpal tunnel, foot, hip, shoulder Family History Family History: Negative Family PMH: FOUND: other Vaccines Hx Influenza Vaccination: Yes (MAR 2016) Hx Pneumococcal Vaccination: Yes (2013) Hx Tetanus Diptheria: Yes ( KEEPS ME UPDATED) Hx Tetanus, Diptheria, Pertuss: Yes (2012) Social History Smoking Status: Never smoker Does patient use chewing tobac: No Substance Use Type: does not use Alcohol Intake: none Sexuality: male partner Review of Systems Constitutional Constitutional: DENIES: chills, fever Eyes General: DENIES: erythema, pain Lids/Accessories: DENIES: erythema, swelling Vision: DENIES: acuity, blurring ENMT Ears: DENIES: drainage, erythema Hearing: DENIES: hearing loss Balance: DENIES: ataxia, falling to one side Sinuses: DENIES: congestion, pain Nose: DENIES: nosebleeds, pain Mouth/Throat: DENIES: painful swallowing, sore throat Teeth: DENIES: pain Jaw: DENIES: pain Cardiovascular Cardiac: DENIES: chest pain, dyspnea on exertion Rhythm/Rate: DENIES: irregular beat, palpitations Vascular: DENIES: pedal edema, unilateral swelling Pulmonary Respiratory: DENIES: cough, dyspnea, pleuritic chest pain, sputum GI Upper Abdomen: DENIES: nausea, pain, vomiting Lower Abdomen: DENIES: diarrhea, pain General: DENIES: burning, dysuria, frequency Musculoskeletal General: DENIES: joint pain, tenderness Integumentary Skin: DENIES: itching, rash Neurological General: DENIES: change in strength, headache, numbness, weakness Psychiatric Psychiatric: DENIES: emotional instability, nervousness, suicidal ideation/ attempt Endocrine Endocrine: DENIES: polydipsia, polyphagia Hematologic/Lymphatic Hematologic/Lymphatic: DENIES: frequent nosebleeds, lymphadenopathy Allergic/Immunological Allergic/Immunoligical: DENIES: allergic reactions, hives Physical Exam General General Nourishment: well nourished, well developed, appears stated age, no acute distress, adult General Body Habitus: well groomed Vitals and Pain First Documented Vital Signs Date Time Temp Pulse Resp B/P Pulse Ox O2 Delivery O2 Flow Rate FiO2 11/01/16 08:58 98.4 78 16 138/77 95 Room Air Weight: Kilograms: 77.500 Height (feet): 5 Height (inches): 6.00 Triage Pain Scale: RN VS reviewed by Provider: Yes Normal Exams: Eyes: Pupils are PERRLA w/ EOMI, No scleral icterus, irritation, or foreign bodies noted ENMT: No facial trauma, nasal exudates, pharyngeal erythema, or exudates are noted Dental: No fractured, loose, or missing teeth noted Neck: Full range of motion, without adenopathy, JVD, bruits or thyromegaly Chest/Resp: Clear all lilly, with good airflow, and symmetry bilaterally CV: Regular rate and rhythm, without murmur or gallop, Pulses 2+ all extremities, capillary refill, <2 seconds all ext., no pedal edema noted Abdomen: Bowel sounds positive, soft, non-tender, non-distended, no hepatosplenomegaly, masses or bruits noted Lymphatic: No lymphadenopathy, or lymphedema noted Musculoskeletal: No tenderness, or deformity noted, good range of motion, all extremities Integumentary: No rashes, hives, or bruising noted, hair and nails, without abnormality Neurologic: Patient is alert, and oriented, cranial nerves, motor/sensory/ cerebellar, exams w/o gross deficits, to observation Psychiatric: Patient exhibits, appropriate attention, emotion and affect Eyes (brief) Comments HEAD - no raccoon eyes, [place] sign, hemotympanum or CSF leak. The midface is stable. No malocclusion of the jaw. + Small dime-sized hematoma to the posterior occiput. Skin is intact. Neurologic (brief) Comments Alert and oriented x 4. CN 2-12 intact. Station intact. Strength normal. Gait normal. Normal coordination. Normal motor. Normal speech. Reflexes 2/4 in all extremities. Absent Babinski bilaterally. Normal neurologic examination. No focal neurologic deficit. Differential Diagnoses Considering: Epidural Hematoma, Fracture, Sprain, Strain, Subdural Hematoma Progress Results/Orders Orders Procedure Category Date Status Time Ct Head W/O Contrast CT 11/01/16 Resulted 09:28 Shoulder Right 2-3 RAD 11/01/16 Resulted Views 09:28 Humerus Right 2 View RAD 11/01/16 Resulted 09:28 Acetaminophen PHA 11/01/16 Complete (Tylenol Extra 10:30 Sling EDM 11/01/16 Transmitted 10:25 Medications Current ED Medications Acetaminophen (Tylenol Extra Strength) 1,000 mg O ONCE PO Last administered on 11/01/16t 10:36; Start 11/01/16 at 10:30; Stop 11/01/16 at 10:31; Status DC Progress Progress Imaging was discussed in detail with the patient and questions are answered. Patient is given analgesic pain medication with improvement of symptoms in the emergency Department. Patient is placed in a sling with good alignment by the RN. Patient is distal neurovascular intact post-application of sling. Patient is discharged home in improved condition. She is to follow up as instructed. Patient's to return to the emergency Department if her condition worsens or changes in any manner. Patient is in agreement with the current plan of management. She is to use [id number] acetaminophen as needed for pain control. Xray Xray : Xray: Shoulder R Interpretation: Normal, Reviewed Written Report CT CT : CT: Head no contrast Interpretation: Normal, Reviewed Written Report VIRGEN WATERS DO November 01, 2016 09:37 VIRGEN WATERS DO November 01, 2016 09:37
--- NOTE | 2016-11-01 09:58 | DI ---
Indication: ITS.REASON: Fall today with posterior head trauma PROCEDURE: CT HEAD W/O CONTRAST: Encounter: Initial Comparison: February 23, 2014 Technique: Axial CT images through the head were performed without contrast. Iterative Reconstruction dose reducing technique was utilized. FINDINGS: The ventricles are of normal size, shape, and configuration for the patient's age. There is no evidence of acute intracranial hemorrhage, midline displacement, or mass effect. There are scattered areas of low attenuation in the white matter which most likely represent changes of chronic microvascular ischemia. The CT attenuation of the brain parenchyma is otherwise normal within the cerebellum, brain stem, and cerebral hemispheres. The tympanic cavities and mastoid air cells are free of appreciable disease. There are no definite fractures of the skull base, calvarium, or visualized portion of the midface. Old right frontal craniotomy. IMPRESSION: No CT evidence of acute traumatic intracranial injury. There is a preliminary report by [email or web address]. .
[2016-11-01 10:05] VITALS: PULSE 71; RESP 18; O2SAT 96
--- NOTE | 2016-11-01 10:10 | DI ---
Indication: ITS.REASON: Fall today with right shoulder injury and pain PROCEDURE: HUMERUS RIGHT 2 VIEW: Encounter: Initial Comparison: September 27, 2010 Findings: There is no acute fracture, dislocation or malalignment identified. Chronic rotator cuff tear. Surgical clips in the right axillary region. Impression: No acute osseous abnormality. .
--- NOTE | 2016-11-01 10:11 | NUR ---
NURSING PROGRESS NOTE: PATIENT RETURN FROM XRAY, DENIES ANY NEEDS.. EXPLAINED WE WOULD WAIT ON RESULTS. PATIENT VERBALY UNDERSTOOD.
--- NOTE | 2016-11-01 10:12 | DI ---
Indication: ITS.REASON: Fall today with right shoulder injury PROCEDURE: SHOULDER RIGHT 3 VIEWS: Encounter: Initial Comparison: September 27, 2010 Findings: There is no acute fracture, dislocation or malalignment identified. Right axillary surgical clips. Degenerative change in the acromioclavicular joint. Impression: No acute osseous abnormality. .
[2016-11-01 10:32] VITALS: BP 167/95
== END | disposition home or self-care (01) ==
LOC: ED 08:56
DX: S00.03XA Contusion of scalp, initial encounter (principal); S40.021A Contusion of right upper arm, initial encounter; W18.39XA Other fall on same level, initial encounter; Y93.89 Activity, other specified; Y92.015 Private garage of single-family (private) house as the place of occurrence of the external cause; Y99.8 Other external cause status
CPT/HCPCS: 70450; 73030; 73060; 99283; A9270